=== PATIENT | male | born 1960 | race Caucasian/White ===

== ENCOUNTER 2020-03-27 14:12 | Inpatient (IN) ==
[2020-03-27] MEDS ORDERED: fentaNYL citrate 100 MCG/2 ML CARP IV ONE (14:45)
[2020-03-27] MEDS ORDERED: ETOMIDATE 2 MG/ML 20 ML VIAL IV ONE ×2 (14:45→20:53)
[2020-03-27] MEDS ORDERED: MIDAZOLAM HCL 5 MG/ML VIAL IV ONE (14:45)
[2020-03-27] MEDS ORDERED: SUCCINYLCHOLINE CHLORIDE 20 MG/ML 10 ML VIAL IV ONE (14:45)
[2020-03-27] MEDS ORDERED: ALBUT/IPRATROP 3MG/0.5MG NEB 3 ML VIAL NEB ONE (14:54)
--- NOTE | 2020-03-27 14:58 | Emergency Department Note ---
Impression & Plan Pneumonia, Hypoxia, Respiratory failure ED Provider Note NAME: GARRY HANSEN JR AGE: 59 SEX: M : 1960 ARRIVES VIA: Ambulance INFORMANT: Patient, ED PROVIDER(S): Byron Bernal DO CHIEF COMPLAINT: Shortness of breath HPI: The patient is a 59-year-old male who presented to the emergency department for severe shortness of breath. The patient presented via ambulance. He was noted to have hypoxia prior to arrival with an oxygen saturation in the 80s. The patient was placed on nonrebreather mask. Recently he was seen at [facility] but left because he did not want to stay there. He then went to [facility]. At that time he was worked up and diagnosed with a pulmonary infection. He was started on steroids as well as Levaquin. He states he has been compliant with these medications. He has had 2 COVID-19 test both of which were negative the most recent one was this past Saturday. He does complain of fever and cough. He does complain of nausea but no vomiting. He complains of difficulty breathing which is worse with any exertion. He denies having any specific chest pain. He denies having any lower extremity swelling or pain. He had no weight loss or weight gain. He has had similar symptoms in the past because of a previous trauma to his chest and he feels that he is a set up for pulmonary infection because of this. He states that he is been compliant with the antibiotic. ROS: See above HPI for pertinent positives & negatives. A total of 10 systems reviewed and were otherwise negative. PAST MEDICAL HISTORY: See Below PAST SURGICAL HISTORY: See Below FAMILY HISTORY: See Below SOCIAL HISTORY: See Below HOME MEDICATIONS: See Below ALLERGIES: See Below VITALS: See Below PHYSICAL EXAMINATION: GENERAL: The patient is awake but somewhat listless. He does answer questions appropriately. EYES: The conjunctivae are clear. The pupils are round and reactive. EARS, NOSE, MOUTH AND THROAT: The nose is without any evidence of any deformity. NECK: The neck is nontender and supple. RESPIRATORY: Diminished breath sounds are noted throughout. Rales were noted throughout. There is significant tachypnea as well as conversational dyspnea. CARDIOVASCULAR: Regular rate and rhythm noted there no murmurs rubs or gallops normal S1 normal S2. GASTROINTESTINAL: The abdomen is soft. Abdomen is nontender. MUSCULOSKELETAL/EXTREMITIES: There is no evidence of gross deformity full range of motion is noted in the hips and shoulders. SKIN: Skin is warm and dry. There is no significant pedal edema. NEUROLOGIC: Patient is oriented x3. Strength was symmetric. MEDICAL DECISION MAKING: The patient is a 59-year-old male who presented to the emergency department for an evaluation of difficulty breathing. The patient was recently discharged from inpatient stay for breathing difficulties. He was diagnosed with bronchitis. He was started on an antibiotic and steroid. The patient started to get worse. He was only discharged a few days ago. He presented via ambulance. He had a significant oxygen demand with severe hypoxia. The patient was tested for COVID-19 which was negative previously. A repeat test today was also negative. The patient's history and physical exam as well as his radiographic findings appear to be very consistent with COVID-19 but at this time he was covered with antibiotics for presumed pneumonia. I discussed the patient's laboratory and radiographic studies with him. He was treated with bronchodilators IV steroids IV antibiotics and was reevaluated multiple times. On subsequent reevaluation his oxygen saturation had improved significantly. Given his findings I discu ssed his case with the on-call [facility] hospitalist. They have agreed to evaluate the patient in the emergency department for further management and disposition. Triage Nursing notes reviewed. Prior medical records reviewed Vital Signs: reviewed and remarkable for hypoxia and hypertension. There is also tachypnea present. Differential diagnosis: Reactive airway disease, pneumonia, pneumothorax, COPD, CHF, infections, cardiac ischemia, pulmonary embolism, musculoskeletal, gastrointestinal, as well as other pathologies. ER treatment provided: See below Diagnostics interpreted by me: ECG: EKG was obtained in the emergency department. My interpretation is sinus rhythm at 71 bpm. PACs were noted. There was no acute ST segment abnormalities noted. This was compared to a tracing from December 022012. No significant changes were noted. Cardiac Monitoring: An order was placed for continuous cardiac monitoring. The monitor shows a rate of 75 bpm with sinus rhythm. Laboratory studies: As stated above and show below. Imaging studies: See below Consultation(s): [id number]: I discussed this case with Dr. Rachel. ED COURSE: Procedures: Endotracheal Intubation Indication respiratory failure, hypoxia. The patient was on 100% oxygen via NRB prior to the procedure. Suction, airway equipment, RSI drugs, respiratory equipment, and appropriate personnel were prepared prior to the initiation of the procedure. A time out was taken. Induction was performed with etomidate and succinylcholine. After observing the clinical benefit of the medications, the airway was easily visualized utilizing a glide scope. A 8.0 size ETT tube was placed atraumatically to 26 cm using standard technique. The cuff inflated without signs of malfunction. There were bilateral breath sounds, positive colormetric change, no gastric sounds, a good capnography waveform, and post procedure pulse oximetry was 96%. Post intubation sedation and paralysis was administered using propofol. There were no complications. PDMP:reviewed and no issues Critical Care: I have personally spent greater than 45 minutes of critical care time in the direct management of this patient. This includes bedside care, interpretation of diagnostic studies, and testing, discussion with consultants, patient, and f amily members, and other required patient management activities. This 45 minutes is in excess of all separately billable procedures. Past Med/Surg History Medical History Chest x-ray abnormality Cough with sputum Exertional dyspnea No significant past medical history Obesity Obesity (BMI 30.0-34.9) Pulmonary scarring Sinusitis Snoring Family History Family/Other Cancer Diabetes Other No significant family history Social History Smoking Status: Never smoker Feels Safe at Home: Yes Allergies Allergies Allergy/AdvReac Type Severity Reaction Status Date / Time No Known Allergies Allergy Verified 03/27/20 16:42 Home Meds Home Medications Medication Instructions Recorded Confirmed amitriptyline 75 mg PO HS 01/13/19 03/27/20 propranolol 10 mg PO AMHS 01/13/19 03/27/20 albuterol sulfate 90 mcg/actuation 2 puffs INH Q6H PRN 11/09/19 03/27/20 aerosol inhaler omeprazole 20 mg capsule,delayed 20 mg PO DAILY 11/09/19 03/27/20 release levofloxacin 750 mg PO Q24H 03/27/20 03/27/20 phenazopyridine 100 mg PO Q8H PRN 03/27/20 03/27/20 prednisone See Rx Instructions .ROUTE .COMPLEX 03/27/20 03/27/20 tamsulosin 0.4 mg PO DAILY 03/27/20 03/27/20 Results & Data (ED) Vital Signs Vital Signs - 24 hr 03/27/20 14:25 03/27/20 14:45 03/27/20 14:58 Temperature 37.0 C Temperature Source Oral Pulse Rate 72 71 Pulse Rate [Apical] Pulse Rate from SpO2 Sensor 72 Respiratory Rate 24 27 H Respiratory Effort / Characteristics Spontaneous Blood Pressure 142/77 H Blood Pressure Mean 98 Pulse Oximetry 83 L 96 Oxygen Delivery Method Room Air Non-rebreather Non-rebreather Non-rebreather Oxygen Flow Rate 0 10 10 Fraction of Inspired Oxygen Sepsis New/Unexplained Change in Mental Status No Sepsis Action Taken by Nursing Physician Notified End-Tidal CO2 Oxygen Flow Rate - Titration 10 Fraction of Inspired Oxygen - Titration Pulse Oximetry Post Tiitration 97 03/27/20 15:00 03/27/20 15:15 03/27/20 15:26 Temperature Temperature Source Pulse Rate 71 71 Pulse Rate [Apical] 72 Pulse Rate from SpO2 Sensor 71 71 Respiratory Rate 22 30 H 22 Respiratory Effort / Characteristics Spontaneous Blood Pressure 139/85 Blood Pressure Mean 98 Pulse Oximetry 95 94 95 Oxygen Delivery Method Non-rebreather Non-rebreather Non-rebreather Oxygen Flow Rate 10 10 10 Fraction of Inspired Oxygen Sepsis New/Unexplained Change in Mental Status Sepsis Action Taken by Nursing End-Tidal CO2 Oxygen Flow Rate - Titration Fraction of Inspired Oxygen - Titration Pulse Oximetry Post Tiitration 03/27/20 15:30 03/27/20 15:45 03/27/20 16:00 Temperature Temperature Source Pulse Rate 74 77 79 Pulse Rate [Apical] Pulse Rate from SpO2 Sensor 74 77 79 Respiratory Rate 27 H 25 H 28 H Respiratory Effort / Characteristics Blood Pressure 139/82 137/77 Blood Pressure Mean 96 101 Pulse Oximetry 94 92 93 Oxygen Delivery Method Oxygen Flow Rate Fraction of Inspired Oxygen Sepsis New/Unexplained Change in Mental Status Sepsis Action Taken by Nursing End-Tidal CO2 Oxygen Flow Rate - Titration Fraction of Inspired Oxygen - Titration Pulse Oximetry Post Tiitration 03/27/20 16:15 03/27/20 16:30 03/27/20 16:45 Temperature Temperature Source Pulse Rate 76 87 81 Pulse Rate [Apical] Pulse Rate from SpO2 Sensor 76 82 82 Respiratory Rate 28 H 25 H 28 H Respiratory Effort / Characteristics Blood Pressure 118/76 Blood Pressure Mean 86 Pulse Oximetry 94 92 93 Oxygen Delivery Method Oxygen Flow Rate Fraction of Inspired Oxygen Sepsis New/Unexplained Change in Mental Status Sepsis Action Taken by Nursing End-Tidal CO2 Oxygen Flow Rate - Titration Fraction of Inspired Oxygen - Titration Pulse Oximetry Post Tiitration 03/27/20 17:00 03/27/20 17:01 03/27/20 17:15 Temperature Temperature Source Pulse Rate 83 79 79 Pulse Rate [Apical] Pulse Rate from SpO2 Sensor 83 79 79 Respiratory Rate 29 H 32 H 28 H Respiratory Effort / Characteristics Blood Pressure 146/86 H Blood Pressure Mean 99 Pulse Oximetry 93 95 94 Oxygen Delivery Method Oxygen Flow Rate Fraction of Inspired Oxygen Sepsis New/Unexplained Change in Mental Status Sepsis Action Taken by Nursing End-Tidal CO2 Oxygen Flow Rate - Titration Fraction of Inspired Oxygen - Titration Pulse Oximetry Post Tiitration 03/27/20 17:30 03/27/20 17:47 03/27/20 17:53 Temperature Temperature Source Pulse Rate 89 82 Pulse Rate [Apical] Pulse Rate from SpO2 Sensor 89 83 Respiratory Rate 32 H 38 H Respiratory Effort / Characteristics Blood Pressure 158/97 H Blood Pressure Mean 113 Pulse Oximetry 93 78 L 91 Oxygen Delivery Method Room Air Oxymask Oxygen Flow Rate 6 Fraction of Inspired Oxygen Sepsis New/Unexplained Change in Mental Status Sepsis Action Taken by Nursing End-Tidal CO2 Oxygen Flow Rate - Titration Fraction of Inspired Oxygen - Titration 8 Pulse Oximetry Post Tiitration 03/27/20 18:00 03/27/20 18:15 03/27/20 18:45 Temperature Temperature Source Pulse Rate 76 74 82 Pulse Rate [Apical] Pulse Rate from SpO2 Sensor 76 74 82 Respiratory Rate 28 H 29 H 27 H Respiratory Effort / Characteristics Blood Pressure 144/82 H Blood Pressure Mean 93 Pulse Oximetry 90 92 97 Oxygen Delivery Method Oxymask Oxymask Oxymask Oxygen Flow Rate 8 10 8 Fraction of Inspired Oxygen Sepsis New/Unexplained Change in Mental Status Sepsis Action Taken by Nursing End-Tidal CO2 Oxygen Flow Rate - Titration Fraction of Inspired Oxygen - Titration Pulse Oximetry Post Tiitration 03/27/20 19:00 03/27/20 19:15 03/27/20 19:30 Temperature Temperature Source Pulse Rate 76 75 75 Pulse Rate [Apical] Pulse Rate from SpO2 Sensor 77 76 75 Respiratory Rate 28 H 27 H 15 Respiratory Effort / Characteristics Blood Pressure 154/86 H 146/85 H Blood Pressure Mean 107 96 Pulse Oximetry 95 94 94 Oxygen Delivery Method Oxymask Oxymask Oxymask Oxygen Flow Rate 8 8 8 Fraction of Inspired Oxygen Sepsis New/Unexplained Change in Mental Status Sepsis Action Taken by Nursing End-Tidal CO2 Oxygen Flow Rate - Titration Fraction of Inspired Oxygen - Titration Pulse Oximetry Post Tiitration 03/27/20 19:45 03/27/20 20:00 03/27/20 20:15 Temperature Temperature Source Pulse Rate 75 76 76 Pulse Rate [Apical] Pulse Rate from SpO2 Sensor 75 77 76 Respiratory Rate 26 H 18 31 H Respiratory Effort / Characteristics Blood Pressure 152/90 H Blood Pressure Mean 105 Pulse Oximetry 96 96 96 Oxygen Delivery Method Oxymask Oxymask Oxymask Oxygen Flow Rate 8 8 8 Fraction of Inspired Oxygen Sepsis New/Unexplained Change in Mental Status Sepsis Action Taken by Nursing End-Tidal CO2 Oxygen Flow Rate - Titration Fraction of Inspired Oxygen - Titration Pulse Oximetry Post Tiitration 03/27/20 20:30 03/27/20 20:45 03/27/20 21:00 Temperature Temperature Source Pulse Rate 76 76 77 Pulse Rate [Apical] Pulse Rate from SpO2 Sensor 76 76 78 Respiratory Rate 32 H 5 L 30 H Respiratory Effort / Characteristics Blood Pressure 156/90 H 156/90 H Blood Pressure Mean 113 104 Pulse Oximetry 98 100 97 Oxygen Delivery Method Oxymask Oxymask Oxymask Oxygen Flow Rate 8 8 8 Fraction of Inspired Oxygen Sepsis New/Unexplained Change in Mental Status Sepsis Action Taken by Nursing End-Tidal CO2 Oxygen Flow Rate - Titration Fraction of Inspired Oxygen - Titration Pulse Oximetry Post Tiitration 03/27/20 21:29 Temperature Temperature Source Pulse Rate 76 Pulse Rate [Apical] Pulse Rate from SpO2 Sensor Respiratory Rate 24 Respiratory Effort / Characteristics Blood Pressure Blood Pressure Mean Pulse Oximetry 95 Oxygen Delivery Method Oxygen Flow Rate Fraction of Inspired Oxygen 70 Sepsis New/Unexplained Change in Mental Status Sepsis Action Taken by Nursing End-Tidal CO2 42 Oxygen Flow Rate - Titration Fraction of Inspired Oxygen - Titration Pulse Oximetry Post Tiitration Home Medications Current Medication List: was personally reviewed by me Laboratory Data Attestation: I reviewed the patient's lab results. Result diagrams: 03/27/20 15:12 03/27/20 15:12 Lab Results 03/27/20 03/27/20 03/27/20 Range/Units 15:12 15:12 15:12 WBC 15.69 H (4.8-10.8) K/uL RBC 4.66 L (4.7-6.1) M/uL Hgb 14.6 (14.0-18.0) g/dL Hct 43.3 (42-52) % MCV 92.9 (80-100) fL MCH 31.3 (25-34) pg MCHC 33.7 (32-36) g/dL RDW Std Deviation 44.9 (36.4-46.3) fL RDW Coeff of Reynaldo 13.3 (11.5-14.5) % Plt Count 256 (130-400) K/uL MPV 10.6 H (7.4-10.4) fL Immature Gran % (Auto) 1.1 % Neut % (Auto) 90.8 % Lymph % (Auto) 4.7 % [place] % (Auto) 3.3 % Eos % (Auto) 0.0 % Baso % (Auto) 0.1 % Neut # (Auto) 14.25 H (1.4-6.5) K/uL Lymph # (Auto) 0.73 L (1.2-3.4) K/uL [place] # (Auto) 0.52 (0.11-0.59) K/uL Eos # (Auto) 0.00 (0-0.5) K/uL Baso # (Auto) 0.01 (0-0.2) K/uL Immature Gran # (Auto) 0.18 H (0.00-0.02) K/uL PT 12.6 H (9.0-12.0) Seconds INR 1.2 H (0.9-1.1) APTT 29.5 (21.0-31.0) Seconds PTT Ratio 1.1 D-Dimer 2030 H* (0-500) ug/L FEU VBG pH (7.36-7.41) VBG pCO2 (38-50) mmHg VBG pO2 mmHg VBG HCO3 mmol/L VBG O2 Saturation % VBG Base Excess mEq/L Barometric Pressure mm/Hg Sodium 140 (136-145) mmol/L Potassium 3.4 L (3.5-5.1) mmol/L Chloride 109 H (98-107) mmol/L Carbon Dioxide 27 (21-32) mmol/L Anion Gap 4.0 (3-11) BUN 23 H (7-18) mg/dl Creatinine 1.13 (0.6-1.4) mg/dl Est Cr Clr Drug Dosing 106.1 ml/min Est GFR ( Amer) 82.0 Est GFR (Non-Af Amer) 70.8 BUN/Creatinine Ratio 20.7 H (10-20) Glucose 133 H (70-99) mg/dl Lactate (0.4-2.0) mmol/L Calcium 7.7 L (8.5-10.1) mg/dl Magnesium 1.6 L (1.8-2.4) mg/dl Total Bilirubin 1.2 H (0.2-1) mg/dl AST 28 (15-37) U/L ALT 42 (12-78) U/L Alkaline Phosphatase 81 (45-117) U/L Troponin I < 0.015 (0-0.045) ng/ml NT-Pro-B Natriuret Pep 842 (0-900) pg/ml Total Protein 6.6 (6.4-8.2) gm/dl Albumin 2.8 L (3.4-5.0) gm/dl Globulin 3.8 (2.5-4.0) gm/dl Albumin/Globulin Ratio 0.7 L (0.9-2) Procalcitonin (0-0.5) ng/ml Urine Color Urine Appearance (Clear) Urine pH (4.5-7.5) Ur Specific Stanley (1.000-1.030) Urine Protein (Negative) Urine Glucose (UA) (Negative) Urine Ketones (Negative) Urine Blood (Negative) Urine Nitrite (Negative) Urine Bilirubin (Negative) Urine Urobilinogen (Negative) Ur Leukocyte Esterase (Negative) Urine WBC (Auto) (0-5) /hpf Urine RBC (Auto) (0-4) /hpf U Hyaline Cast (Auto) (0-5) /lpf U Epithel Cells (Auto) (0-5) /lpf Urine Bacteria (Auto) (Negative) COVID-19 Eval Order Influ A Molecular Assay (Negative) Influ B Molecular Assay (Negative) SARS-CoV-2, RNA, NAAT (NEGATIVE) 03/27/20 03/27/20 03/27/20 Range/Units 15:12 15:12 16:06 WBC (4.8-10.8) K/uL RBC (4.7-6.1) M/uL Hgb (14.0-18.0) g/dL Hct (42-52) % MCV (80-100) fL MCH (25-34) pg MCHC (32-36) g/dL RDW Std Deviation (36.4-46.3) fL RDW Coeff of Reynaldo (11.5-14.5) % Plt Count (130-400) K/uL MPV (7.4-10.4) fL Immature Gran % (Auto) % Neut % (Auto) % Lymph % (Auto) % [place] % (Auto) % Eos % (Auto) % Baso % (Auto) % Neut # (Auto) (1.4-6.5) K/uL Lymph # (Auto) (1.2-3.4) K/uL [place] # (Auto) (0.11-0.59) K/uL Eos # (Auto) (0-0.5) K/uL Baso # (Auto) (0-0.2) K/uL Immature Gran # (Auto) (0.00-0.02) K/uL PT (9.0-12.0) Seconds INR (0.9-1.1) APTT (21.0-31.0) Seconds PTT Ratio D-Dimer (0-500) ug/L FEU VBG pH 7.42 H (7.36-7.41) VBG pCO2 44 (38-50) mmHg VBG pO2 29 mmHg VBG HCO3 28 mmol/L VBG O2 Saturation < 60.0 % VBG Base Excess 2.9 mEq/L Barometric Pressure 725.2 mm/Hg Sodium (136-145) mmol/L Potassium (3.5-5.1) mmol/L Chloride (98-107) mmol/L Carbon Dioxide (21-32) mmol/L Anion Gap (3-11) BUN (7-18) mg/dl Creatinine (0.6-1.4) mg/dl Est Cr Clr Drug Dosing ml/min Est GFR ( Amer) Est GFR (Non-Af Amer) BUN/Creatinine Ratio (10-20) Glucose (70-99) mg/dl Lactate 1.4 (0.4-2.0) mmol/L Calcium (8.5-10.1) mg/dl Magnesium (1.8-2.4) mg/dl Total Bilirubin (0.2-1) mg/dl AST (15-37) U/L ALT (12-78) U/L Alkaline Phosphatase (45-117) U/L Troponin I (0-0.045) ng/ml NT-Pro-B Natriuret Pep (0-900) pg/ml Total Protein (6.4-8.2) gm/dl Albumin (3.4-5.0) gm/dl Globulin (2.5-4.0) gm/dl Albumin/Globulin Ratio (0.9-2) Procalcitonin 0.06 (0-0.5) ng/ml Urine Color Urine Appearance (Clear) Urine pH (4.5-7.5) Ur Specific [place] (1.000-1.030) Urine Protein (Negative) Urine Glucose (UA) (Negative) Urine Ketones (Negative) Urine Blood (Negative) Urine Nitrite (Negative) Urine Bilirubin (Negative) Urine Urobilinogen (Negative) Ur Leukocyte Esterase (Negative) Urine WBC (Auto) (0-5) /hpf Urine RBC (Auto) (0-4) /hpf U Hyaline Cast (Auto) (0-5) /lpf U Epithel Cells (Auto) (0-5) /lpf Urine Bacteria (Auto) (Negative) COVID-19 Eval Order Influ A Molecular Assay (Negative) Influ B Molecular Assay (Negative) SARS-CoV-2, RNA, NAAT (NEGATIVE) 03/27/20 03/27/20 03/27/20 Range/Units 17:55 17:55 19:59 WBC (4.8-10.8) K/uL RBC (4.7-6.1) M/uL Hgb (14.0-18.0) g/dL Hct (42-52) % MCV (80-100) fL MCH (25-34) pg MCHC (32-36) g/dL RDW Std Deviation (36.4-46.3) fL RDW Coeff of Reynaldo (11.5-14.5) % Plt Count (130-400) K/uL MPV (7.4-10.4) fL Immature Gran % (Auto) % Neut % (Auto) % Lymph % (Auto) % [place] % (Auto) % Eos % (Auto) % Baso % (Auto) % Neut # (Auto) (1.4-6.5) K/uL Lymph # (Auto) (1.2-3.4) K/uL [place] # (Auto) (0.11-0.59) K/uL Eos # (Auto) (0-0.5) K/uL Baso # (Auto) (0-0.2) K/uL Immature Gran # (Auto) (0.00-0.02) K/uL PT (9.0-12.0) Seconds INR (0.9-1.1) APTT (21.0-31.0) Seconds PTT Ratio D-Dimer (0-500) ug/L FEU VBG pH (7.36-7.41) VBG pCO2 (38-50) mmHg VBG pO2 mmHg VBG HCO3 mmol/L VBG O2 Saturation % VBG Base Excess mEq/L Barometric Pressure mm/Hg Sodium (136-145) mmol/L Potassium (3.5-5.1) mmol/L Chloride (98-107) mmol/L Carbon Dioxide (21-32) mmol/L Anion Gap (3-11) BUN (7-18) mg/dl Creatinine (0.6-1.4) mg/dl Est Cr Clr Drug Dosing ml/min Est GFR ( Amer) Est GFR (Non-Af Amer) BUN/Creatinine Ratio (10-20) Glucose (70-99) mg/dl Lactate (0.4-2.0) mmol/L Calcium (8.5-10.1) mg/dl Magnesium (1.8-2.4) mg/dl Total Bilirubin (0.2-1) mg/dl AST (15-37) U/L ALT (12-78) U/L Alkaline Phosphatase (45-117) U/L Troponin I (0-0.045) ng/ml NT-Pro-B Natriuret Pep (0-900) pg/ml Total Protein (6.4-8.2) gm/dl Albumin (3.4-5.0) gm/dl Globulin (2.5-4.0) gm/dl Albumin/Globulin Ratio (0.9-2) Procalcitonin (0-0.5) ng/ml Urine Color Dark Yellow Urine Appearance Clear (Clear) Urine pH 6.5 (4.5-7.5) Ur Specific [place] > 1.045 H (1.000-1.030) Urine Protein 1+ H (Negative) Urine Glucose (UA) Negative (Negative) Urine Ketones Negative (Negative) Urine Blood 3+ H (Negative) Urine Nitrite Negative (Negative) Urine Bilirubin Negative (Negative) Urine Urobilinogen Negative (Negative) Ur Leukocyte Esterase Negative (Negative) Urine WBC (Auto) 1-5 (0-5) /hpf Urine RBC (Auto) >30 H (0-4) /hpf U Hyaline Cast (Auto) 0 (0-5) /lpf U Epithel Cells (Auto) 20-30 H (0-5) /lpf Urine Bacteria (Auto) Negative (Negative) COVID-19 Eval [facility] Influ A Molecular Assay Negative (Negative) Influ B Molecular Assay Negative (Negative) SARS-CoV-2, RNA, NAAT NEGATIVE (NEGATIVE) Administered Medications Discontinued Medications Albuterol (Albut/Ipratrop 3mg/0.5mg Neb 3 Ml Vial) 12 ml NEB ONE ONE Stop: 03/27/20 14:55 Last Admin: 03/27/20 15:20 Dose: 12 ml Documented by: [id number] Dexamethasone (Dexamethasone Sod Inj 10 Mg/Ml Vial) 10 mg IV NOW ONE Stop: 03/27/20 18:47 Last Admin: 03/27/20 19:24 Dose: 10 mg Documented by: [id number] Piperacillin Sod/Tazobactam Sod (Zosyn) 4.5 gm in 120 mls @ 240 mls/hr IV NOW ONE Stop: 03/27/20 16:26 Last Infusion: 03/27/20 18:20 Dose: 0 mls/hr Documented by: [id number] Admin: 03/27/20 17:50 Dose: 240 mls/hr Documented by: [id number] Vancomycin HCl 2,500 mg/ (Sodium Chloride) 550 mls @ 200 mls/hr IV NOW ONE Stop: 03/27/20 18:41 Last Infusion: 03/27/20 20:35 Dose: 0 mls/hr Documented by: [id number] Admin: 03/27/20 17:50 Dose: 200 mls/hr Documented by: [id number] Ioversol (Optiray 320 125ml) 119 ml IV ONCE ONE Stop: 03/27/20 18:26 Last Admin: 03/27/20 18:25 Dose: 119 ml Documented by: [id number] Imaging Data Attestation: I personally reviewed and interpreted this imaging study as follows: My Impression: 1 view chest x-ray was obtained in the emergency department after intubation. My interpretation is endotracheal tube is noted above the samuel. Good aeration is noted bilaterally however bilateral parenchymal infiltrates are noted. Radiologist's Impression: Patient: GARRY HANSEN JR Admit Date: 03/27/20 MR#: [id number] Address1: [address] [place] [address] Acct ID:[id number] Address2: Date: 1960 [facility] Zip: [place] [address] Age: 59 Location: ED Sex: M Room/Bed: Att Phy: Diagnosis: RESPIRATORY PROBLEMS Sweetie Phy: Trevor Rashid DO Service Date: 03/27/20 Fam Phy: Interpreting Phy: Adama Loera Admit Phy: Ordering Phy: Byron Bernal DO cc: ~ CT soft tissue neck w con HISTORY: 59 years-old Male diff breathing acute shortness of breath COMPARISON: CTA of the chest of same day TECHNIQUE: Multiple axial CT images of the soft tissues of the neck were obtained following the intravenous administration of 119 mL Optiray 320. A dose lowering technique was used consistent with the principals of ALARA. FINDINGS: The imaged intracranial structures demonstrate no acute abnormality. Rotoformer Backtender localizer images demonstrate extensive bilateral pulmonary opacities. Orbits and soft tissues are unremarkable. Streak artifact from dental amalgam hardware. The parotid, submandibular and thyroid glands appear unremarkable. The nasopharynx, oral pharynx and hypopharynx are patent. The epiglottis, aryepiglottic folds, glottis and subglottic airway appears unremarkable. Patent airway. Mildly prominent lymph nodes of the upper mediastinum. 11 mm fluid attenuating focus is noted lateral to the uvula involving the oral pharyngeal mucosa on image 164 series 6. No prevertebral edema. ORIF hardware of the left clavicle. Groundglass and consolidative opacities of the imaged lung apices. No pneumothorax. Remote displaced left-sided rib fractures. No acute fracture identified. IMPRESSION: 1. Patent airway with no infectious or inflammatory changes of the neck identified. 2. Groundglass and consolidative opacities of the lung apices. Please refer to CTA chest of same day for additional findings. 3. Mildly prominent upper mediastinal lymph nodes are likely reactive. 4. 11 mm fluid attenuating focus lateral to the uvula involving the oral pharyngeal mucosa favors benign etiology. ACT 112: Negative or not required by law. The above report was generated using voice recognition software. It may contain grammatical, syntax or spelling errors. Electronically signed by: Dick Loera M.D. 03/27/2020 6:55 PM Dictated: 03/27/201848 Transcribed: 03/27/201848 Patient: GARRY HANSEN JR Admit Date: 03/27/20 MR#: [id number] Address1: [address] [place] [address] Acct ID:[id number] Address2: Date: 1960 [facility] Zip: [place] [address] Age: 59 Location: ED Sex: M Room/Bed: Att Phy: Diagnosis: RESPIRATORY PROBLEMS Sweetie Phy: Trevor Rashid DO Service Date: 03/27/20 Fam Phy: Interpreting Phy: Adama Loera Admit Phy: Ordering Phy: Byron Bernal DO cc: ~ CT angio chest PE protocol CT DOSE: 1600.34 mGy.cm HISTORY: 59 years-old Male with PE. Acute shortness of breath TECHNIQUE: Multiple CTA images of the chest were obtained after the intravenous administration of 119 ml Optiray 320. Coronal and sagittal MIPS were obtained from the axial data set and were submitted for review. All measurements were obtained according to NASCET criteria. A dose lowering technique was utilized adhering to the principles of ALARA. COMPARISON: CT soft tissue neck of same day, CT abdomen and pelvis 01/13/2019 FINDINGS: Limited exam secondary to upper extremity positioning CTA: Heart is upper limits of normal in size. No pericardial effusion. There is no t horacic aortic aneurysm or dissection. Patency of the imaged great vessels. The pulmonary arterial tree is opacified to level the proximal segmental branches and demonstrates no filling defects to suggest thromboembolic disease. CT CHEST: Unremarkable thyroid. Prominent mediastinal and hilar lymph nodes measure up to 8 mm, likely reactive. There are trace pleural effusions. Moderate to extensive irregular groundglass and consolidative opacities are noted within all lobes bilaterally. There is no pneumothorax. No suspicious pulmonary nodules. Central airways appear patent. No acute process of the imaged upper abdomen. Suggested hepatic steatosis. Soft tissues are unremarkable. The bones appear grossly intact. Degenerative changes of the shoulders and spine. Remote left-sided rib fractures. IMPRESSION: 1. No evidence of pulmonary thromboembolic disease. 2. Bilateral mixed groundglass and consolidative opacities within all lobes bilaterally suggest multifocal pneumonia. Follow-up imaging to document resolution recommended. 3. Mildly prominent mediastinal and hilar lymph nodes, likely reactive. 4. Trace pleural effusions. ACT 112: Negative or not required by law. The above report was generated using voice recognition software. It may contain grammatical, syntax or spelling errors. Electronically signed by: Dick Loera M.D. 03/27/2020 6:46 PM Dictated: 03/27/201838 Transcribed: 03/27/201838 Patient: GARRY HANSEN JR Admit Date: 03/27/20 MR#: [id number] Address1: [address] [place] [address] Acct ID:[id number] Address2: Date: 1960 [facility] Zip: [place] [address] Age: 59 Location: ED Sex: M Room/Bed: Att Phy: Diagnosis: RESPIRATORY PROBLEMS Sweetie Phy: Trevor Rashid DO Service Date: 03/27/20 [facility] Phy: Interpreting Phy: Adama Loera Admit Phy: Ordering Phy: Byron Bernal DO cc: ~ XR chest 1V portable HISTORY: 59 years-old Male SEPSIS . Sepsis COMPARISON: Chest radiograph 12/02/2012 TECHNIQUE: Portable AP view of the chest FINDINGS: Cardiac silhouette is enlarged. Mild bilateral hilar prominence. Mild right hemidiaphragmatic elevation. Bilateral mixed interstitial and alveolar opacities are noted within all lung zones. No pneumothorax, large pleural effusion or overt pulmonary edema. Degenerative changes of the shoulders and spine. Remote left-sided rib fractures. ORIF changes of the left clavicle. IMPRESSION: 1. Bilateral mixed interstitial and alveolar opacities are suggestive of multifocal pneumonia. Follow-up recommended to document resolution 2. Mild bilateral hilar prominence may reflect adenopathy. ACT 112: Negative or not required by law. The above report was generated using voice recognition software. It may contain grammatical, syntax or spelling errors. Electronically signed by: Dick Loera M.D. 03/27/2020 3:15 PM Dictated: 03/27/201513 Transcribed: 03/27/201513 Blood Pressure Blood Pressure Findings: Normal blood pressure Discharge Plan Visit Data Chief Complaint: Respiratory Problems ED Provider: Byron Bernal Discharge Problem: Pneumonia, Hypoxia, Respiratory failure Patient Disposition: Admitted As Inpatient Condition: Good Forms Stand Alone Forms: [facility] Prescriptions Prescriptions: No Action omeprazole 20 mg capsule,delayed release(DR/EC) 20 mg PO DAILY RF: 0 albuterol sulfate 90 mcg/actuation HFA aerosol inhaler 2 puffs INH Q6H PRN (Reason: Wheezing) RF: 0 amitriptyline 75 mg tablet 75 mg PO HS RF: 0 propranolol 10 mg tablet 10 mg PO AMHS RF: 0 tamsulosin 0.4 mg capsule 0.4 mg PO DAILY RF: 0 phenazopyridine 100 mg tablet 100 mg PO Q8H PRN (Reason: Dysuria) RF: 0 levofloxacin 750 mg tablet 750 mg PO Q24H RF: 0 prednisone 10 mg tablet See Rx Instructions .ROUTE .COMPLEX RF: 0 Referrals Referrals: Trevor Rashid DO [Primary Care Provider] - Discharge Problem: Pneumonia Qualifiers: Pneumonia type: due to unspecified organism Laterality: bilateral Lung location: unspecified part of lung Qualified Code(s): J18.9 - Pneumonia, unspecified organism Respiratory failure Qualifiers: Chronicity: acute Respiratory failure complication: hypoxia Qualified Code(s): J96.01 - Acute respiratory failure with hypoxia
--- NOTE | 2020-03-27 15:17 | XRay Report ---
XR chest 1V portable HISTORY: 59 years-old Male SEPSIS . Sepsis COMPARISON: Chest radiograph 12/02/2012 TECHNIQUE: Portable AP view of the chest FINDINGS: Cardiac silhouette is enlarged. Mild bilateral hilar prominence. Mild right hemidiaphragmatic elevati on. Bilateral mixed interstitial and alveolar opacities are noted within all lung zones. No pneumotho rax, large pleural effusion or overt pulmonary edema. Degenerative changes of the shoulders and spine . Remote left-sided rib fractures. ORIF changes of the left clavicle. IMPRESSION: 1. Bilateral mixed interstitial and alveolar opacities are suggestive of multifocal pneumonia. Follow -up recommended to document resolution 2. Mild bilateral hilar prominence may reflect adenopathy. ACT 112: Negative or not required by law. The above report was generated using voice recognition software. It may contain grammatical, syntax o r spelling errors. Electronically signed by: Dick Loera M.D. 03/27/2020 3:15 PM
[2020-03-27 15:28] LABS: Basophils # (auto) 0.01 K/uL (0-0.2); Basophils % (auto) 0.1 %; Hematocrit (blood only) 43.3 % (42-52); Hemoglobin 14.6 g/dL (14.0-18.0); Immature Granulocytes # (auto) 0.18 K/uL (0.00-0.02); Immature Granulocytes % (auto) 1.1 %; Lymphocytes # (auto) 0.73 K/uL (1.2-3.4); Lymphocytes % (auto) 4.7 %; Mean Corpuscular Hemoglobin 31.3 pg (25-34); Mean Corpuscular Hgb Conc 33.7 g/dL (32-36); Mean Corpuscular Volume 92.9 fL (80-100); Mean Platelet Volume 10.6 fL (7.4-10.4); Monocytes # (auto) 0.52 K/uL (0.11-0.59); Monocytes % (auto) 3.3 %; Neutrophils # (auto) 14.25 K/uL (1.4-6.5); Neutrophils % (auto) 90.8 %; Platelet Count 256 K/uL (130-400); RDW Coefficient of Variation 13.3 % (11.5-14.5); RDW Standard Deviation 44.9 fL (36.4-46.3); Red Blood Count 4.66 M/uL (4.7-6.1); White Blood Count 15.69 K/uL (4.8-10.8)
[2020-03-27 15:38] LABS: INR 1.2 (0.9-1.1); Partial Thromboplastin Ratio 1.1; Partial Thromboplastin Time 29.5 Seconds (21.0-31.0); Prothrombin Time 12.6 Seconds (9.0-12.0)
[2020-03-27 15:45] LABS: Alanine Aminotransferase 42 U/L (12-78); Aspartate Aminotransferase 28 U/L (15-37); BUN Creatinine Ratio 20.7 (10-20); Blood Urea Nitrogen 23 mg/dl (7-18); Calcium 7.7 mg/dl (8.5-10.1); Carbon Dioxide 27 mmol/L (21-32); Chloride 109 mmol/L (98-107); Creatinine Clr Calc Pharmacy 106.1 ml/min; Est GFR (Non-African American) 70.8; Glucose 133 mg/dl (70-99); Magnesium 1.6 mg/dl (1.8-2.4); Sodium 140 mmol/L (136-145)
[2020-03-27 15:46] LABS: D Dimer 2030 ug/L FEU (0-500)
[2020-03-27 15:49] LABS: Potassium 3.4 mmol/L (3.5-5.1)
[2020-03-27 15:50] LABS: Albumin Globulin Ratio 0.7 (0.9-2); Albumin Level 2.8 gm/dl (3.4-5.0); Alkaline Phosphatase 81 U/L (45-117); Bilirubin,Total 1.2 mg/dl (0.2-1); Globulin 3.8 gm/dl (2.5-4.0); NT Pro B Type Natriuretic Pept 842 pg/ml (0-900); Total Protein 6.6 gm/dl (6.4-8.2); Troponin I < 0.015 ng/ml (0-0.045)
[2020-03-27] MEDS ORDERED: PIPERACILLIN/TAZOBACTAM 4.5 GM/120 ML BAG IV ONE (15:57)
[2020-03-27] MEDS ORDERED: VANCOMYCIN HCL 2,500 MG in SODIUM CHLORIDE 0.9% 500 ML IV ONE (15:57)
[2020-03-27] MEDS ORDERED: PIPERACILL/TAZOBAC CONSULT ACTIVE PRN ×2 (15:57→22:08)
[2020-03-27] MEDS ORDERED: VANCOMYCIN CONSULT ACTIVE PRN ×2 (15:57→22:08)
[2020-03-27 16:20] LABS: Base Excess VBG 2.9 mEq/L; HCO3 VBG 28 mmol/L; PCO2 VBG 44 mmHg (38-50); PO2 VBG 29 mmHg; pH VBG 7.42 (7.36-7.41)
[2020-03-27 16:21] LABS: Oxygen Saturation VBG < 60.0 %
[2020-03-27] MEDS ORDERED: OPTIRAY 320 125ml IV ONE (18:25)
[2020-03-27 18:29] LABS: SARS CoV2 RNA(COVID-19) ID NOW NEGATIVE (NEGATIVE)
[2020-03-27] MEDS ORDERED: DEXAMETHASONE SOD INJ 10 MG/ML VIAL IV ONE (18:46)
--- NOTE | 2020-03-27 18:47 | CT Scan Report ---
CT angio chest PE protocol CT DOSE: 1600.34 mGy.cm HISTORY: 59 years-old Male with PE. Acute shortness of breath TECHNIQUE: Multiple CTA images of the chest were obtained after the intravenous administration of 119 ml Optiray 320. Coronal and sagittal MIPS were obtained from the axial data set and were submitted for review. All measurements were obtained according to NASCET criteria. A dose lowering technique w as utilized adhering to the principles of ALARA. COMPARISON: CT soft tissue neck of same day, CT abdomen and pelvis 01/13/2019 FINDINGS: Limited exam secondary to upper extremity positioning CTA: Heart is upper limits of normal in size. No pericardial effusion. There is no thoracic aortic aneurys m or dissection. Patency of the imaged great vessels. The pulmonary arterial tree is opacified to lev el the proximal segmental branches and demonstrates no filling defects to suggest thromboembolic dise ase. CT CHEST: Unremarkable thyroid. Prominent mediastinal and hilar lymph nodes measure up to 8 mm, likely reactive . There are trace pleural effusions. Moderate to extensive irregular groundglass and consolidative op acities are noted within all lobes bilaterally. There is no pneumothorax. No suspicious pulmonary nod ules. Central airways appear patent. No acute process of the imaged upper abdomen. Suggested hepatic steatosis. Soft tissues are unremarka ble. The bones appear grossly intact. Degenerative changes of the shoulders and spine. Remote left-si ded rib fractures. IMPRESSION: 1. No evidence of pulmonary thromboembolic disease. 2. Bilateral mixed groundglass and consolidative opacities within all lobes bilaterally suggest multi focal pneumonia. Follow-up imaging to document resolution recommended. 3. Mildly prominent mediastinal and hilar lymph nodes, likely reactive. 4. Trace pleural effusions. ACT 112: Negative or not required by law. The above report was generated using voice recognition software. It may contain grammatical, syntax o r spelling errors. Electronically signed by: Dick Loera M.D. 03/27/2020 6:46 PM
--- NOTE | 2020-03-27 18:56 | CT Scan Report ---
CT soft tissue neck w con HISTORY: 59 years-old Male diff breathing acute shortness of breath COMPARISON: CTA of the chest of same day TECHNIQUE: Multiple axial CT images of the soft tissues of the neck were obtained following the intra venous administration of 119 mL Optiray 320. A dose lowering technique was used consistent with the p rincipals of RENEE. FINDINGS: The imaged intracranial structures demonstrate no acute abnormality. Spray Machine Operator localizer images demonstra te extensive bilateral pulmonary opacities. Orbits and soft tissues are unremarkable. Streak artifact from dental amalgam hardware. The parotid, submandibular and thyroid glands appear unremarkable. The nasopharynx, oral pharynx and hypopharynx are patent. The epiglottis, aryepiglottic folds, glottis a nd subglottic airway appears unremarkable. Patent airway. Mildly prominent lymph nodes of the upper m ediastinum. 11 mm fluid attenuating focus is noted lateral to the uvula involving the oral pharyngeal mucosa on image 164 series 6. No prevertebral edema. ORIF hardware of the left clavicle. Groundglass and consolidative opacities of the imaged lung apices. No pneumothorax. Remote displaced left-sided rib fractures. No acute fracture identified. IMPRESSION: 1. Patent airway with no infectious or inflammatory changes of the neck identified. 2. Groundglass and consolidative opacities of the lung apices. Please refer to CTA chest of same day for additional findings. 3. Mildly prominent upper mediastinal lymph nodes are likely reactive. 4. 11 mm fluid attenuating focus lateral to the uvula involving the oral pharyngeal mucosa favors cody ign etiology. ACT 112: Negative or not required by law. The above report was generated using voice recognition software. It may contain grammatical, syntax o r spelling errors. Electronically signed by: Dick Loera M.D. 03/27/2020 6:55 PM
[2020-03-27 19:01] LABS: Influenza A virus by PCR Negative (Negative); Influenza B virus by PCR Negative (Negative)
[2020-03-27 20:26] LABS: Appearance Urine Clear (Clear); Bacteria Urine Automated Negative (Negative); Bilirubin Urine Negative (Negative); Blood Urine 3+ (Negative); Cast Urine Automated 0 /lpf (0-5); Color Urine Dark Yellow; Epithelial Cell Urine Auto 20-30 /lpf (0-5); Glucose Urine UA Negative (Negative); Ketones Urine Negative (Negative); Leukocyte Esterase Urine Negative (Negative); Nitrite Urine Negative (Negative); Protein Urine 1+ (Negative); RBC Urine Automated >30 /hpf (0-4); Specific Gravity Urine > 1.045 (1.000-1.030); Urobilinogen Urine Negative (Negative); pH Urine 6.5 (4.5-7.5)
--- NOTE | 2020-03-27 20:32 | Electrocardiogram Report ---
Test Reason : Blood Pressure : / mmHG Vent. Rate : 071 BPM Atrial Rate : 071 BPM P-R Int : 154 ms QRS Dur : 086 ms QT Int : 438 ms P-R-T Axes : 051 036 022 degrees QTc Int : 475 ms Sinus rhythm with occasional Premature ventricular complexes Otherwise normal ECG When compared with ECG of 02-DEC-2012 03:23, Premature ventricular complexes are now Present Confirmed by Darrick Lyle ([id number]) on 03/27/2020 8:31:53 PM Referred By: REFERRED SELF Confirmed By:Darrick Lyle
[2020-03-27] MEDS ORDERED: RAPID SEQUENCE INDUCTION BAG ONE (20:55)
[2020-03-27] MEDS ORDERED: PROPOFOL IV EMULSION 10 MG/ML 100 ML VIAL IV ONE (21:03)
--- NOTE | 2020-03-27 21:11 | History & Physical Report ---
Date of Service March 27, 2020 Assessment & Plan (1) Admitted to intensive care unit: Admitted to intensive care unit for treatment of multifocal pneumonia due to COVID-19 virus/respiratory failure with hypoxia/intubation in the ED- Present on Admission?: Yes (2) Pneumonia due to COVID-19 virus: Multifocal pneumonia due to COVID-19 virus/respiratory failure with hypoxia- Consult state attorney Dr. Escobar and ICU team Ventilator management per ICU team Decadron 6 mg IV daily Convalescent plasma Remdesivir IV per protocol Vancomycin IV per pharmacokinetic monitoring Zosyn 4.5 g IV every 8 hours Doxycycline 100 mg IV every 12 hours Serial CBC with differential, chemistry profile, magnesium, PT/PT/INR, arterial blood gas and chest x-rays. Present on Admission?: Yes (3) Respiratory failure with hypoxia: See above Present on Admission?: Yes (4) Multifocal pneumonia: See above Present on Admission?: Yes (5) Hypokalemia: NSS + KCl 20 mEq at 60 mils per hour. Repeat laboratories as above. Present on Admission?: Yes History of Present Illness Chief Complaint: The patient presented to the emergency department with severe shortness of breath, and was noted to be hypoxic in the ambulance en route to the hospital in the mid 80s, and improved with a nonrebreather mask. Primary Care Provider: Trevor Rashid DO The patient is a 59-year-old male with a past medical history including obesity, BPH, hypertension, GERD, and asthma. The history is reported of the having been at [facility], and then went and then to [facility], where he was admitted for treatment of an unknown lung infection. He was discharged on a steroid taper and Levaquin. He had had Covid testing done as recently as 5 days ago, which was reportedly negative. His main symptoms reported were fever and cough. During his stay in the emergency department, the patient became more lethargic and less responsive, with decreased inspiratory volume. Decision was made to intubate patient in the emergency department, and admit to the ICU for further treatment. Allergies Allergy/AdvReac Type Severity Reaction Status Date / Time No Known Allergies Allergy Verified 03/27/20 16:42 Home Medications Home Medications Medication Instructions Recorded Confirmed Type amitriptyline 75 mg PO HS 01/13/19 03/27/20 History propranolol 10 mg PO AMHS 01/13/19 03/27/20 History albuterol sulfate 90 mcg/actuation 2 puffs INH Q6H PRN 11/09/19 03/27/20 History aerosol inhaler omeprazole 20 mg capsule,delayed 20 mg PO DAILY 11/09/19 03/27/20 History release levofloxacin 750 mg PO Q24H 03/27/20 03/27/20 History phenazopyridine 100 mg PO Q8H PRN 03/27/20 03/27/20 History prednisone See Rx Instructions .ROUTE .COMPLEX 03/27/20 03/27/20 History tamsulosin 0.4 mg PO DAILY 03/27/20 03/27/20 History Past Med/Surg History Medical History Chest x-ray abnormality Cough with sputum Exertional dyspnea No significant past medical history Obesity Obesity (BMI 30.0-34.9) Pulmonary scarring Sinusitis Snoring Family History Family/Other Cancer Diabetes Other No significant family history Social History Smoking Status: Never smoker Beliefs That Will Affect Care: None Current Living Situation: Family Feels Safe at Home: Yes Safety Concerns: Feels Safe At This Time Assistive Devices: Oxygen - Continuous Review of Systems Review of Systems: Unobtainable due to cognitive status and Unobtainable due to reduced consciousness Physical Exam Physical Exam: The patient is very lethargic, normocephalic and atraumatic, lying in bed and in moderate to severe distress. HEENT--PERRL, EOMI, mucous membranes and oropharynx dry. Neck--supple. No JVD. No bruits. Thyroid normal, trachea midline, no adeno deanne. Heart--normal S1 and S2. No murmurs, rubs or gallops. Lungs--clear bilaterally, no respiratory distress, no accessory muscle use. Abdomen--normal bowel sounds and soft. Nontender. Nondistended. Extremities--no cyanosis or clubbing. No edema. Dermatologic--normal skin turgor, normal color, no abnormal lymph nodes, no rash. Neurologic--cranial nerves II through XII grossly intact. Rheumatologic--limited exam Psychiatric--very lethargic Results & Data Results & Data ([facility]) Vital Signs (Past 12 Hours) Vital Signs Temp Pulse Pulse Resp BP Pulse Ox 03/27/20 21:00 77 30 H 156/90 H 97 03/27/20 20:45 76 5 L 100 03/27/20 20:30 76 32 H 156/90 H 98 03/27/20 20:15 76 31 H 96 03/27/20 20:00 76 18 152/90 H 96 03/27/20 19:45 75 26 H 96 03/27/20 19:30 75 15 146/85 H 94 03/27/20 19:15 75 27 H 94 03/27/20 19:00 76 28 H 154/86 H 95 03/27/20 18:45 82 27 H 144/82 H 97 03/27/20 18:15 74 29 H 92 03/27/20 18:00 76 28 H 90 03/27/20 17:53 91 03/27/20 17:47 82 38 H 78 L 03/27/20 17:30 89 32 H 158/97 H 93 03/27/20 17:15 79 28 H 94 03/27/20 17:01 79 32 H 146/86 H 95 03/27/20 17:00 83 29 H 93 03/27/20 16:45 81 28 H 93 03/27/20 16:30 87 25 H 118/76 92 03/27/20 16:15 76 28 H 94 03/27/20 16:00 79 28 H 137/77 93 03/27/20 15:45 77 25 H 92 03/27/20 15:30 74 27 H 139/82 94 03/27/20 15:26 72 22 95 03/27/20 15:15 71 30 H 94 03/27/20 15:00 71 22 139/85 95 03/27/20 14:45 71 27 H 96 03/27/20 14:25 98.6 F 72 24 142/77 H 83 L Code Status & VTE Plan VTE Prophylaxis Plan VTE Prophylaxis will be ordered: Yes Critical Care Time Critical Care Time: Yes Total Critical Care Time: 45 PG Care Time/CCT Total # of Minutes Spent Total Time Spent with Patient: Total time spent is greater than 50% in coordination of care (as documented) at patient's floor/unit and/or counseling patient: Critical Care Time: Yes Total Critical Care Time: 45 Coding Level of Care Code 89530 Initial Inpt Care Lvl 3 Diagnoses Admitted to intensive care unit Z78.9 Pneumonia due to COVID-19 virus U07.1; J12.89 Respiratory failure with hypoxia J96.91 Multifocal pneumonia J18.9 Hypokalemia E87.6 Additional Codes Critical Care Time - Critical Care Time: Yes ([id number]) Time Spent (min) 45
[2020-03-27] MEDS ORDERED: MIDAZOLAM HCL 5 MG/ML 1 ML VIAL IV STA (21:40)
[2020-03-27] MEDS ORDERED: levoFLOXacin/D5W 500 MG/100 ML BAG IV SCH (22:00)
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
[2020-03-27] MEDS ORDERED: NSS + 20MEQ KCL 20 MEQ/1,000 ML BAG IV SCH (22:08)
[2020-03-27] MEDS ORDERED: ENOXAPARIN 0.5 MG/KG SQ SCH (22:08)
[2020-03-27] MEDS ORDERED: VANCOMYCIN HCL 1,000 MG in SODIUM CHLORIDE 0.9% 250 ML IV SCH (22:08)
[2020-03-27] MEDS ORDERED: ICU PROTOCOL FOR HYPERGLYCEMIA PRN (22:08)
[2020-03-27] MEDS ORDERED: DEXAMETHASONE SOD INJ 4 MG/ML VIAL IV SCH (22:08)
[2020-03-27] MEDS ORDERED: PROPOFOL BOLUS FROM BAG IV PRN (22:18)
[2020-03-27] MEDS ORDERED: STAT IV Infusion **Titration per Protocol STA (22:18)
[2020-03-27] MEDS: DOXYCYCLINE HYCLATE 100 MG in DEXTROSE 5% 100 ML IV SCH (22:31)
[2020-03-27] MEDS: ENOXAPARIN 80 MG/0.8 ML SYR SQ SCH (22:31)
[2020-03-27] MEDS: FAMOTIDINE 20 MG in SYRINGE 3 ML IV SCH (22:31)
[2020-03-27] MEDS: fentaNYL DRIP 1,250 MCG/250 ML BAG IV SCH (22:34)
[2020-03-27] MEDS ORDERED: INFLUENZA VIRUS QUAD VACCINE 0.5 ML SYR IM ONE (22:59)
[2020-03-27] MEDS ORDERED: INFLUENZA ADMINISTRATION CHARGE ONE (22:59)
[2020-03-27] MEDS: propofoL 1,000 MG/100 ML VIAL IV SCH (23:18)
[2020-03-27] MEDS: PIPERACILLIN/TAZOBACTAM 4.5 GM in DEXTROSE 5% 100 ML IV SCH (23:32)
[2020-03-27 23:50] LABS: iSTAT Art Bld Gas pCO2 Correct 42 mmHg (35-46); iSTAT Art Bld Gas pH Corrected 7.377 (7.35-7.45); iSTAT Arterial Blood Gas HCO3 25 meg/L (19-24); iSTAT Arterial Blood Gas pCO2 41 mmHg (35-46); iSTAT Arterial Blood Gas pH 7.38 (7.35-7.45); iSTAT Arterial Blood Gas pO2 88 mmHg (80-95); iSTAT Arterial Blood Gas pO2 C 90; iSTAT Carbon Dioxide 26 mmol/L (24-31); iSTAT FiO2 70 %; iSTAT Hematocrit 40 % (42-52); iSTAT Hemoglobin 13.6 g/dl (14.0-18.0); iSTAT Potassium 3.5 mmol/L (3.3-5.0); iSTAT Site Art Line; iSTAT Sodium 141 mmol/L (135-144)
--- NOTE | 2020-03-27 23:56 | Procedure Note ---
Procedure Note Date of Service March 27, 2020 Procedure: Arterial Line Placement Attending: Dr. Castañeda APC: Manny Mahmood PA-C Indication: Monitoring on Pressors Anesthesia: Lidocaine 1% Emergent consent implied in the setting of respiratory failure and need for close respiratory gas monitoring as well as hemodynamic monitoring while sedated. Verbal consent obtained from via phone during conversation update. A time-out was completed verifying correct patient, procedure, site, positioning, and implant(s) or special equipment if applicable. Allens test was performed to ensure adequate perfusion. Patients LEFT wrist was prepped and draped in the usual sterile fashion. Ultrasound guidance was used to aid needle placement. A 20g Arrow arterial line was introduced into the LEFT Radial artery. Catheter was threaded, and the needle was removed with appropriate blood return. Good waveform was observed. The patient tolerated the procedure well. Confirmation of placement with ultrasound. Blood Loss: Minimal Complications: None Procedural Ultrasound Guidance: Procedure Date: 03/27/2020 Indication: ABGs, Poor access, Frequent labs Attending: Dr. Castañeda APC: Manny Mahmood PA-C Artery Identified: YES Line confirmed in Artery with ultrasound: YES Complications: NONE Patient tolerated procedure: WELL Coding CPT Codes Tubes, Drains, and Vasc Access - Tubes, Drains, and Vasc Access: [id number] Insertion Catheter, Artery ([id number]) [facility] Procedure Codes (Charges) Tubes, Drains, and Vasc Access Procedure 1: Tubes, Drains, and Vasc Access: [id number] Insertion Catheter, Artery
--- NOTE | 2020-03-27 23:57 | Procedure Note ---
Procedure Note Date of Service March 27, 2020 Procedure: Business Risk Analyst Indwelling Peripherally Inserted IV Catheter Placement Attending: Dr. Castañeda APC: Manny Mahmood PA-C Indication: Need for IV Access, Poor Vascular Access Anesthesia: None Consent implied given the need for good peripheral access in the Covid-19 positive patient with poor peripheral access. A time-out was completed verifying correct patient, procedure, site, positioning, and implant(s) or special equipment if applicable. Utilizing bedside ultrasound, vascularity of the RIGHT upper extremity was assessed. Vessel size was noted for appropriate catheter selection and skin was marked with gentle pressure. Patients RIGHT upper extremity was prepped and draped in the usual sterile fashion utilizing chlorhexidine. Ultrasound guidance was used to aid needle placement. A 20 g Endurance Catheter was introduced into the RIGHT forearm vein under direct ultrasound guidance. Guide wire was easily deployed without resistance. Catheter was threaded over the guide wire without resistance and the entire apparatus was removed intact. Good venous blood return was noted in the catheter. The IV catheter was easily flushed with sterile saline flush. Sterile clave was attached to the end of the catheter and good blood return was again noted. Tourniquet was released. StatLock device and sterile dressing were applied. The patient tolerated the procedure well. Blood Loss: Minimal Complications: None Procedural Ultrasound Guidance: Procedure Date: 03/27/2020 Indication: Poor Vascular Access Attending: Dr. Castañeda APC: Manny Mahmood PA-C Artery/Veins Identified: YES Access confirmed in Vein with ultrasound: YES Complications: NONE Patient tolerated procedure: WELL Coding
--- NOTE | 2020-03-27 23:57 | Procedure Note ---
Procedure Note Date of Service March 27, 2020 Procedure: Automobile Accessories Salesperson Indwelling Peripherally Inserted IV Catheter Placement Attending: Dr. Castañeda APC: Manny Mahmood PA-C Indication: Need for IV Access, Poor Vascular Access Anesthesia: None Consent implied in the critically ill patient with need for good peripheral access. A time-out was completed verifying correct patient, procedure, site, positioning, and implant(s) or special equipment if applicable. Utilizing bedside ultrasound, vascularity of the LEFT upper extremity was assessed. Vessel size was noted for appropriate catheter selection and skin was marked with gentle pressure. Patients LEFT upper extremity was prepped and draped in the usual sterile fashion utilizing chlorhexidine. Ultrasound guidance was used to aid needle placement. A 18 g Endurance Catheter was introduced into the LEFT cephalic vein under direct ultrasound guidance. Guide wire was easily deployed without resistance. Catheter was threaded over the guide wire without resistance and the entire apparatus was removed intact. Good venous blood return was noted in the catheter. The IV catheter was easily flushed with sterile saline flush. Sterile clave was attached to the end of the catheter and good blood return was again noted. Tourniquet was released. StatLock device and sterile dressing were applied. The patient tolerated the procedure well. Blood Loss: Minimal Complications: None Procedural Ultrasound Guidance: Procedure Date: 03/27/2020 Indication: Poor Vascular Access Attending: Dr. Castañeda APC: Manny Mahmood PA-C Artery/Veins Identified: YES Access confirmed in Vein with ultrasound: YES Complications: NONE Patient tolerated procedure: WELL Coding
[2020-03-28 00:12] LABS: Ferritin 1294.5 ng/ml (8-388); Phosphorus 2.5 mg/dl (2.5-4.9); Troponin I < 0.015 ng/ml (0-0.045)
[2020-03-28 01:23] LABS: Adenovirus PCR Not Detected (NotDetected); Bordetella parapertussis PCR Not Detected (NotDetected); Bordetella pertussis PCR Not Detected (NotDetected); Chlamydia pneumoniae PCR Not Detected (NotDetected); Coronavirus 229E PCR Not Detected (NotDetected); Coronavirus HKU1 PCR Not Detected (NotDetected); Coronavirus NL63 PCR Not Detected (NotDetected); Coronavirus OC43PCR Not Detected (NotDetected); Human Metapneumovirus PCR Not Detected (NotDetected); Influenza A PCR Not Detected (NotDetected); Influenza B PCR Not Detected (NotDetected); Mycoplasma pneumoniae PCR Not Detected (NotDetected); Parainfluenza Virus 1 PCR Not Detected (NotDetected); Parainfluenza Virus 2 PCR Not Detected (NotDetected); Parainfluenza Virus 3 PCR Not Detected (NotDetected); Parainfluenza Virus 4 PCR Not Detected (NotDetected); Respiratory Syncytial VirusPCR Not Detected (NotDetected); Rhinovirus/Enterovirus PCR Not Detected (NotDetected)
[2020-03-28 01:25] LABS: Coronavirus CoV-2 (COVID19)PCR DETECTED (NotDetected)
[2020-03-28] MEDS: propofoL 1,000 MG/100 ML VIAL IV SCH ×7 (01:56→20:49)
[2020-03-28] MEDS ORDERED: REMDESIVIR 200 MG in SODIUM CHLORIDE 0.9% 210 ML IV ONE (02:00)
[2020-03-28] MEDS: SODIUM CHLORIDE 0.9% 10ML FLUSH IV SCH (04:30)
[2020-03-28 04:53] LABS: Basophils # (auto) 0.02 K/uL (0-0.2); Basophils % (auto) 0.1 %; Hematocrit (blood only) 38.7 % (42-52); Immature Granulocytes # (auto) 0.17 K/uL (0.00-0.02); Immature Granulocytes % (auto) 1.2 %; Lymphocytes # (auto) 0.75 K/uL (1.2-3.4); Lymphocytes % (auto) 5.4 %; Mean Corpuscular Hemoglobin 31.4 pg (25-34); Mean Corpuscular Hgb Conc 33.6 g/dL (32-36); Mean Corpuscular Volume 93.5 fL (80-100); Mean Platelet Volume 10.1 fL (7.4-10.4); Monocytes % (auto) 3.6 %; Neutrophils % (auto) 89.7 %; Platelet Count 235 K/uL (130-400); RDW Coefficient of Variation 13.4 % (11.5-14.5); RDW Standard Deviation 46.4 fL (36.4-46.3); Red Blood Count 4.14 M/uL (4.7-6.1); White Blood Count 13.94 K/uL (4.8-10.8)
[2020-03-28 04:54] LABS: iSTAT Arterial Blood Gas HCO3 23 meg/L (19-24); iSTAT Arterial Blood Gas pCO2 40 mmHg (35-46); iSTAT Arterial Blood Gas pH 7.38 (7.35-7.45); iSTAT Arterial Blood Gas pO2 75 mmHg (80-95); iSTAT Carbon Dioxide 24 mmol/L (24-31); iSTAT FiO2 60 %; iSTAT Site Art Line
[2020-03-28 05:04] LABS: INR 1.1 (0.9-1.1); Partial Thromboplastin Ratio 1.2; Partial Thromboplastin Time 32.4 Seconds (21.0-31.0); Prothrombin Time 11.9 Seconds (9.0-12.0)
[2020-03-28 05:31] LABS: Albumin Level 2.1 gm/dl (3.4-5.0); BUN Creatinine Ratio 23.8 (10-20); Calcium 7.3 mg/dl (8.5-10.1); Creatinine Clr Calc Pharmacy 114.2 ml/min; Est GFR (African American) 91.7; Est GFR (Non-African American) 79.1; Magnesium 1.7 mg/dl (1.8-2.4); Potassium 3.6 mmol/L (3.5-5.1)
[2020-03-28 05:33] LABS: Albumin Globulin Ratio 0.6 (0.9-2); Bilirubin,Total 1.1 mg/dl (0.2-1); Globulin 3.8 gm/dl (2.5-4.0); Phosphorus 2.7 mg/dl (2.5-4.9); Total Protein 5.9 gm/dl (6.4-8.2)
[2020-03-28] MEDS ORDERED: VANCOMYCIN HCL 1,500 MG in SODIUM CHLORIDE 0.9% 500 ML IV SCH (06:00)
[2020-03-28] MEDS: MAGNESIUM SULFATE / D5W 1 GM/100 ML BAG IV SCH ×2 (06:22→08:08)
--- NOTE | 2020-03-28 06:53 | Communication Note ---
Date of Service: March 28, 2020 0625: I did reach out to the patient's , Ankita regarding positive COVID-19 test results. She was encouraged to self quarantine and reach out to her PCP for any further guidance. At this point, she reports that she is completely asymptomatic. She agrees to continue to self quarantine. She was provided contact information to the ICU as well as an update on her . She does provide verbal consent for me to reach out to [facility] where the patient was just discharged on 03/26 after a 3-day admission. 0645: I did contact [facility] and speak to clinical staff regarding patient's positive COVID-19 test. This was done as a courtesy as patient had tested negative at their institution on 03/25. Coding Level of Care Code None
[2020-03-28] MEDS ORDERED: POTASSIUM PHOS 3 MMOL/1 ML INFUSION IV STA (07:34)
[2020-03-28] MEDS ORDERED: POTASSIUM PHOSPHATE 30 MMOL in SODIUM CHLORIDE 0.9% 500 ML IV STA (07:37)
--- NOTE | 2020-03-28 08:01 | XRay Report ---
XR chest 1V portable HISTORY: 59 years-old Male Post intubation acute respiratory failure COMPARISON: Chest radiograph and CTA chest studies of same day TECHNIQUE: Portable AP view of the chest FINDINGS: Endotracheal tube overlies the midline, 2.9 cm superior to the samuel. Enteric tube courses below the diaphragm with distal tip outside the field of view. Unchanged right hemidiaphragmatic elevation. Tr navin pleural effusions. Extensive bilateral mixed interstitial and alveolar opacities moderately worse chace. Cardiomegaly. No pneumothorax. Remote fracture deformity of the left scapula with ORIF changes o f the left clavicle. IMPRESSION: 1. Endotracheal tube overlies the midline, 2.9 cm superior to the samuel. 2. Extensive bilateral mixed interstitial and alveolar opacities have moderately worsened. ACT 112: Negative or not required by law. The above report was generated using voice recognition software. It may contain grammatical, syntax o r spelling errors. Electronically signed by: Dick Loera M.D. 03/28/2020 7:59 AM
[2020-03-28] MEDS: PIPERACILLIN/TAZOBACTAM 4.5 GM in DEXTROSE 5% 100 ML IV SCH ×3 (08:08→23:26)
[2020-03-28] MEDS: dexAMETHasone 6 MG in SYRINGE 0 ML IV SCH (08:09)
--- NOTE | 2020-03-28 08:14 | XRay Report ---
XR chest 1V portable HISTORY: Breast heart failure. COMPARISON: Chest 05/27/2019. FINDINGS: Endotracheal tube terminates 4.1 cm from the samuel. No pneumothorax. The heart remains mil dly enlarged. Nasogastric tube terminates below the diaphragm. The tip is not included on this study. Postoperative changes within the left clavicle. Bilateral airspace opacities have slightly improved. Old posttraumatic changes within the left scapula. IMPRESSION: 1. Satisfactory support line placement. 2. Slight improved aeration within the lungs. ACT 112: Negative or not required by law. Electronically signed by: Ney Rizo M.D. 03/28/2020 8:13 AM
[2020-03-28] MEDS: DOXYCYCLINE HYCLATE 100 MG in DEXTROSE 5% 100 ML IV SCH ×2 (11:00→21:25)
[2020-03-28] MEDS: FAMOTIDINE 20 MG in SYRINGE 3 ML IV SCH ×2 (11:00→21:25)
[2020-03-28] MEDS: D5W AND 1/2NSS 1,000 ML IV SCH (11:01)
[2020-03-28] MEDS: ENOXAPARIN INJ 60 MG/0.6 ML SYR SQ SCH ×2 (11:02→23:26)
[2020-03-28] MEDS: fentaNYL DRIP 1,250 MCG/250 ML BAG IV SCH (11:31)
[2020-03-28] MEDS: INSULIN ASPART 100 UNITS/ML 3 ML PEN SC SCH ×3 (11:32→21:05)
[2020-03-28 11:35] LABS: iSTAT Hematocrit 42 % (42-52); iSTAT Hemoglobin 14.3 g/dl (14.0-18.0); iSTAT Potassium 3.3 mmol/L (3.3-5.0); iSTAT Sodium 140 mmol/L (135-144)
[2020-03-28 11:36] LABS: iSTAT Arterial Blood Gas HCO3 24 meg/L (19-24); iSTAT Arterial Blood Gas pCO2 32 mmHg (35-46); iSTAT Arterial Blood Gas pH 7.48 (7.35-7.45); iSTAT Arterial Blood Gas pO2 59 mmHg (80-95); iSTAT Carbon Dioxide 25 mmol/L (24-31)
[2020-03-28 11:37] LABS: iSTAT Sample Type Arterial
--- NOTE | 2020-03-28 12:55 | Critical Care Progress Note ---
Date of Service March 28, 2020 Assessment & Plan (1) Pneumonia due to COVID-19 virus: -- VDRF Likely secondary to COVID-19 pneumonia Continue with ventilatory support Keep RASS -1 Daily sedation holidays and SBT's Chlorhexidine mouthwash --COVID-19 pneumonia Influenza A/B: Negative, COVID-19: +ve 03/27/2020 Ferritin: 1295, LDH 342, D-dimer 2029 Procalcitonin 0.06 Continue with dexamethasone for total of 10 days 6 mg Continue with remdesivir for total of 5 days. --> Monitor creatinine and LFTs --Right lobe pulmonary scarring Minimal Mildly reduced DLCO on PFTs 07/2019 --Hypertension Blood pressure medications on hold --Obesity --Hypokalemia, hypomagnesemia Being replaced --Prophylaxis VTE: Lovenox GI: Pepcid Lines: Right IJ, left radial Diet: N.p.o. Plan: In/out +749, urine output 875 Go down on propofol as the patient is RASS -2. Go down on FiO2 to keep O2 saturation greater than 90. Continue with remdesivir and dexamethasone. DC vancomycin given nasal MRSA is negative. Repeat procalcitonin in the morning, if it is negative can DC Zosyn. Change IV fluids to D5 half at 50. Hypomagnesemia and hypokalemia being replaced I have personally spent 39 minutes of critical care time in the direct management of this patient. This is a life/limb threatening event. This includes time spent evaluating patient, direct bedside care, chart review, placing orders, interpretation of diagnostic studies, discussion with consultants, patient, and family members, as well as other required patient management activities. This time is exclusive of all separately billable procedures, and teaching time and separate from and in addition to any other critical care service time. Please note the above document was generated using voice recognition software. It may contain grammatical, syntax or spelling errors. (2) Multifocal pneumonia: (3) Respiratory failure with hypoxia: (4) Obesity (BMI 30.0-34.9): (5) Pulmonary scarring: Admission and Anticipated Discharge Date Admission Date: March 27, 2020 Subjective Patient seen and examined at bedside. No acute distress, no adverse events overnight. On fentanyl 100 and propofol 45 at the time of examination. Patient was RASS -2. Not breathing over the vent. Afebrile in the hospital. Review of Systems Review of Systems: Unobtainable due to cognitive status and Unobtainable due to endotracheal tube Physical Exam Physical Exam: Constitutional: No acute distress HEENT: PERRLA, sluggish response Respiratory system: Decreased air entry bilaterally, no wheeze, no rhonchi, positive crackles bilateraly CVS: S1-S2 positive, no murmurs or gallops, bradycardia Abdomen: Soft, nontender, nondistended, positive bowel sounds x4 Extremities: +2 pulses bilaterally radialis/ dorsalis pedis, no cyanosis, no edema Neuro: Positive pupil, positive gag, positive corneal, RASS -2 Psych: Unable to assess G/U: Positive Alexander Skin: no rashes, warm and dry Lymphatic: no cervical or axillary lymphadenopathy Results & Data Results & Data ([facility]) Vital Signs (Past 12 Hours) Vital Signs Temp Pulse Resp BP Pulse Ox 03/28/20 11:06 47 L 20 91 03/28/20 09:00 35.7 C L 49 L 91 03/28/20 08:45 35.7 C L 49 L 91 03/28/20 08:30 35.7 C L 49 L 92 03/28/20 08:21 35.7 C L 50 L 107/47 L 93 03/28/20 08:15 35.7 C L 51 L 93 03/28/20 08:00 35.6 C L 51 L 92 03/28/20 07:45 35.6 C L 47 L 93 03/28/20 07:40 48 L 20 93 03/28/20 07:30 35.6 C L 49 L 93 03/28/20 07:21 35.6 C L 49 L 102/50 L 93 03/28/20 07:15 35.6 C L 49 L 93 03/28/20 07:00 35.7 C L 49 L 93 03/28/20 06:45 35.7 C L 50 L 93 03/28/20 06:30 35.7 C L 50 L 93 03/28/20 06:21 35.8 C L 50 L 87/43 L 93 03/28/20 06:15 35.8 C L 50 L 94 03/28/20 06:00 35.8 C L 51 L 94 03/28/20 05:45 35.8 C L 51 L 93 03/28/20 05:30 35.8 C L 52 L 92 03/28/20 05:21 35.8 C L 53 L 97/76 L 92 03/28/20 05:15 35.8 C L 54 L 92 03/28/20 05:00 35.9 C L 52 L 93 03/28/20 04:56 52 L 20 93 03/28/20 04:30 35.9 C L 53 L 93 03/28/20 04:21 35.9 C L 53 L 93 03/28/20 04:00 36.0 C L 53 L 93 03/28/20 03:30 36.0 C L 54 L 93 03/28/20 03:21 36.1 C L 55 L 88/55 L 93 03/28/20 03:00 36.1 C L 55 L 94 03/28/20 02:30 36.3 C L 56 L 94 03/28/20 02:21 36.3 C L 57 L 94 03/28/20 02:00 36.4 C L 59 L 94 03/28/20 01:45 36.5 C 60 93 03/28/20 01:30 36.6 C 61 94 03/28/20 01:21 36.6 C 61 87/54 L 93 03/28/20 01:15 36.6 C 63 94 03/28/20 01:11 62 20 94 03/28/20 01:02 36.8 C 62 100/60 93 03/28/20 01:00 36.8 C 63 94 03/28/20 04:42 03/28/20 04:42 Coding Level of Care Code Critical Care 1st 30-74 mins Diagnoses Pneumonia due to COVID-19 virus U07.1; J12.89 Multifocal pneumonia J18.9 Respiratory failure with hypoxia J96.91 Obesity (BMI 30.0-34.9) E66.9 Pulmonary scarring J98.4 Time Spent (min) 39
[2020-03-28] MEDS: ENOXAPARIN 80 MG/0.8 ML SYR SQ SCH (20:21)
[2020-03-29] MEDS: fentaNYL DRIP 1,250 MCG/250 ML BAG IV SCH ×3 (00:42→23:26)
[2020-03-29] MEDS: propofoL 1,000 MG/100 ML VIAL IV SCH ×6 (00:42→23:30)
[2020-03-29] MEDS: REMDESIVIR 100mg: Days 2-5 IV SCH (02:43)
[2020-03-29 03:43] LABS: iSTAT Arterial Blood Gas HCO3 24 meg/L (19-24); iSTAT Arterial Blood Gas pCO2 39 mmHg (35-46); iSTAT Arterial Blood Gas pO2 73 mmHg (80-95); iSTAT Carbon Dioxide 26 mmol/L (24-31); iSTAT FiO2 70 %; iSTAT Site Art Line
[2020-03-29] MEDS: SODIUM CHLORIDE 0.9% 10ML FLUSH IV SCH (04:30)
[2020-03-29 05:00] LABS: Basophils # (auto) 0.02 K/uL (0-0.2); Basophils % (auto) 0.2 %; Hematocrit (blood only) 39.4 % (42-52); Hemoglobin 13.3 g/dL (14.0-18.0); Immature Granulocytes # (auto) 0.42 K/uL (0.00-0.02); Immature Granulocytes % (auto) 3.6 %; Lymphocytes # (auto) 1.09 K/uL (1.2-3.4); Lymphocytes % (auto) 9.4 %; Mean Corpuscular Hemoglobin 31.8 pg (25-34); Mean Corpuscular Hgb Conc 33.8 g/dL (32-36); Mean Corpuscular Volume 94.3 fL (80-100); Mean Platelet Volume 10.6 fL (7.4-10.4); Monocytes # (auto) 1.09 K/uL (0.11-0.59); Monocytes % (auto) 9.4 %; Neutrophils # (auto) 9.02 K/uL (1.4-6.5); Neutrophils % (auto) 77.4 %; Platelet Count 272 K/uL (130-400); RDW Coefficient of Variation 13.7 % (11.5-14.5); RDW Standard Deviation 47.4 fL (36.4-46.3); Red Blood Count 4.18 M/uL (4.7-6.1); White Blood Count 11.64 K/uL (4.8-10.8)
[2020-03-29 05:13] LABS: INR 1.1 (0.9-1.1); Partial Thromboplastin Ratio 1.1; Partial Thromboplastin Time 30.7 Seconds (21.0-31.0); Prothrombin Time 11.7 Seconds (9.0-12.0)
[2020-03-29 05:40] LABS: Creatinine Clr Calc Pharmacy 120.1 ml/min; Est GFR (African American) 96.2; Potassium 3.8 mmol/L (3.5-5.1)
[2020-03-29 05:42] LABS: Albumin Globulin Ratio 0.5 (0.9-2); Bilirubin,Total 0.6 mg/dl (0.2-1); Globulin 3.7 gm/dl (2.5-4.0); Phosphorus 3.6 mg/dl (2.5-4.9); Total Protein 5.7 gm/dl (6.4-8.2)
[2020-03-29] MEDS: D5W AND 1/2NSS 1,000 ML IV SCH (06:10)
[2020-03-29] MEDS: POTASSIUM CHLORIDE / WTR 10 MEQ/100 ML PLCT IV SCH ×2 (06:11→08:21)
[2020-03-29] MEDS ORDERED: POTASSIUM PHOS 3 MMOL/1 ML INFUSION IV STA (07:04)
[2020-03-29] MEDS ORDERED: FUROSEMIDE 40 MG in SYRINGE 0 ML IV ONE (07:15)
[2020-03-29] MEDS ORDERED: POTASSIUM PHOSPHATE 15 MMOL in SODIUM CHLORIDE 0.9% 250 ML IV ONE (07:30)
[2020-03-29] MEDS: INSULIN ASPART 100 UNITS/ML 3 ML PEN SC SCH ×3 (08:23→18:40)
[2020-03-29] MEDS: PIPERACILLIN/TAZOBACTAM 4.5 GM in DEXTROSE 5% 100 ML IV SCH ×2 (08:25→14:57)
--- NOTE | 2020-03-29 09:13 | XRay Report ---
XR chest 1V portable HISTORY: Respiratory failure. intubated COMPARISON: Chest 03/28/2020. FINDINGS: The endotracheal tube terminates 3.2 cm from the samuel. There are low lung volumes. No pne umothorax. Patchy bilateral airspace opacities persist. The heart remains mildly enlarged. No pleural effusions. Nasogastric tube terminates below the diaphragm. The tip is not included on this study. I nternal fixation of an old, healed left clavicle fracture. There is also an old, healed left scapular fracture. IMPRESSION: 1. Satisfactory support line placement. 2. No change in the bilateral airspace opacities. ACT 112: Negative or not required by law. Electronically signed by: Ney Rizo M.D. 03/29/2020 9:12 AM
[2020-03-29] MEDS ORDERED: Nursing to Pharmacy Communication SCH (10:45)
[2020-03-29] MEDS ORDERED: PEPTAMEN INTENSE VHP 1.0 CAL 1,000 ML BAG OG SCH ×2 (10:45→11:00)
[2020-03-29] MEDS: dexAMETHasone 6 MG in SYRINGE 0 ML IV SCH (10:48)
[2020-03-29] MEDS: FAMOTIDINE 20 MG in SYRINGE 3 ML IV SCH ×2 (10:49→20:25)
[2020-03-29] MEDS: DOXYCYCLINE HYCLATE 100 MG in DEXTROSE 5% 100 ML IV SCH ×2 (10:58→22:01)
[2020-03-29] MEDS: ENOXAPARIN INJ 60 MG/0.6 ML SYR SQ SCH ×2 (10:58→22:12)
--- NOTE | 2020-03-29 11:08 | Critical Care Progress Note ---
Date of Service March 29, 2020 Assessment & Plan (1) Pneumonia due to COVID-19 virus: -- VDRF Likely secondary to COVID-19 pneumonia Continue with ventilatory support Keep RASS -1 Daily sedation holidays and SBT's Chlorhexidine mouthwash --COVID-19 pneumonia Influenza A/B: Negative, COVID-19: +ve 03/27/2020 Ferritin: 1295, LDH 342, D-dimer 2029 Procalcitonin 0.06 --> 0.05 03/29/2020 Continue with dexamethasone for total of 10 days 6 mg Continue with remdesivir for total of 5 days. --> Monitor creatinine and LFTs --Right lobe pulmonary scarring Minimal Mildly reduced DLCO on PFTs 07/2019 --Hypertension Blood pressure medications on hold --Obesity --Prophylaxis VTE: Lovenox 60 mg twice daily GI: Pepcid Lines: Peripheral, left radial Diet: Start feeding today Plan: In/out: +3.2 L, urine output 1900 AB.4/39/73 on 70% with PEEP of 8 Chest x-ray from today still shows bilateral infiltrates more on the left side. Patient is +3.2 L. We will give him a dose of Lasix. Would like him to be euvolemic. Titrate down FiO2 to keep saturation between 88-92% We will start tube feeding today. Procalcitonin was 0.05 today. Will discontinue Zosyn after today's dose. Continue with doxycycline for total of 5 days I have personally spent 37 minutes of critical care time in the direct management of this patient. This is a life/limb threatening event. This includes time spent evaluating patient, direct bedside care, chart review, placing orders, interpretation of diagnostic studies, discussion with consultants, patient, and family members, as well as other required patient management activities. This time is exclusive of all separately billable procedures, and teaching time and separate from and in addition to any other critical care service time. Please note the above document was generated using voice recognition software. It may contain grammatical, syntax or spelling errors. (2) Multifocal pneumonia: (3) Respiratory failure with hypoxia: (4) Obesity (BMI 30.0-34.9): (5) Pulmonary scarring: Admission and Anticipated Discharge Date Admission Date: March 27, 2020 Subjective Patient seen and examined at bedside. No acute distress. Early in the morning around 3 AM when the patient was being cleaned he desaturated and had to be bumped up to 70% FiO2 At the time of examination patient was on fentanyl 125, propofol 30 He is RASS -1 Following simple commands. Denies any pain. Afebrile Review of Systems Review of Systems: All systems reviewed & are unremarkable except as noted in Subjective and Unobtainable due to endotracheal tube Physical Exam Physical Exam: Constitutional: No acute distress HEENT: PERRLA Respiratory system: Decreased air entry bilaterally, no wheeze, no rhonchi, positive crackles bilateraly CVS: S1-S2 positive, no murmurs or gallops, bradycardia Abdomen: Soft, nontender, nondistended, positive bowel sounds x4 Extremities: +2 pulses bilaterally radialis/ dorsalis pedis, no cyanosis, no ed janeth Neuro: Positive pupil, positive gag, positive corneal, RASS -1 Psych: Unable to assess G/U: Positive Alexander Skin: no rashes, warm and dry Lymphatic: no cervical or axillary lymphadenopathy Results & Data Results & Data ([facility]) Vital Signs (Past 12 Hours) Vital Signs Temp Pulse Resp BP Pulse Ox 03/29/20 10:30 54 L 95 03/29/20 10:25 52 L 21 96 03/29/20 08:45 36.6 C 66 92 03/29/20 08:30 36.5 C 63 94 03/29/20 08:22 36.5 C 59 L 91 03/29/20 08:16 53 L 21 90 03/29/20 08:15 36.4 C L 54 L 92 03/29/20 08:00 36.4 C L 69 92 03/29/20 07:45 36.4 C L 52 L 97 03/29/20 07:30 36.4 C L 51 L 96 03/29/20 07:21 36.4 C L 49 L 96 03/29/20 07:15 36.4 C L 49 L 96 03/29/20 07:00 36.4 C L 49 L 97 03/29/20 06:00 36.5 C 47 L 96 03/29/20 05:21 36.6 C 49 L 122/80 95 03/29/20 05:00 36.6 C 49 L 96 03/29/20 04:22 36.8 C 51 L 96 03/29/20 04:00 36.9 C 51 L 95 03/29/20 03:30 50 L 20 94 03/29/20 03:21 36.9 C 57 L 95 03/29/20 03:00 36.9 C 53 L 92 03/29/20 02:45 36.8 C 54 L 93 03/29/20 02:30 36.8 C 57 L 93 03/29/20 02:22 36.8 C 65 83/53 L 91 03/29/20 02:15 36.7 C 61 92 03/29/20 02:00 36.6 C 64 84 L 03/29/20 01:45 36.6 C 58 L 87 L 03/29/20 01:30 36.5 C 58 L 91 03/29/20 01:15 36.5 C 60 93 03/29/20 01:00 36.4 C L 49 L 92 03/29/20 00:00 36.4 C L 50 L 92 03/28/20 23:58 54 L 03/28/20 23:45 36.4 C L 51 L 93 03/28/20 23:30 36.4 C L 48 L 94 03/28/20 23:21 36.4 C L 49 L 93 03/28/20 23:20 49 L 20 93 03/28/20 23:15 36.4 C L 51 L 94 03/29/20 04:45 03/29/20 04:45 Coding Level of Care Code Critical Care 1st 30-74 mins Diagnoses Pneumonia due to COVID-19 virus U07.1; J12.89 Multifocal pneumonia J18.9 Respiratory failure with hypoxia J96.91 Obesity (BMI 30.0-34.9) E66.9 Pulmonary scarring J98.4 Time Spent (min) 37
--- NOTE | 2020-03-29 11:47 | Hospitalist Progress Note ---
Date of Service March 29, 2020 Assessment & Plan (1) Admitted to intensive care unit: Admitted to intensive care unit for treatment of multifocal pneumonia due to COVID-19 virus/respiratory failure with hypoxia/intubation in the ED- (2) Pneumonia due to COVID-19 virus: Multifocal pneumonia due to COVID-19 virus/respiratory failure with hypoxi a- Consult claims counsel Dr. Escobar and ICU team Ventilator management per ICU team Standard Covid treatments including Decadron, Remdesivir IV per protocol. Consider convalescent plasma per ICU team. - Stopped vancomycin IV per pharmacokinetic monitoring - Zosyn & Doxycycline per ICU team (3) Respiratory failure with hypoxia: See above (4) Multifocal pneumonia: See above (5) Hypokalemia: NSS + KCl 20 mEq at 60 mils per hour. Repeat laboratories as above. Admission and Anticipated Discharge Date Admission Date: March 27, 2020 Subjective Remains intubated. Review of Systems Review of Systems: Unobtainable due to endotracheal tube Physical Exam Constitutional: + acute distress and + ill appearing Eyes: EOM intact bilaterally; no conjunctival abnormality ENMT: external ear and nose normal, oropharynx normal Mouth / Teeth: 1. Intubated Neck: trachea midline, no thyromegaly normal visual inspection Respiratory: + labored breathing and + tachypneic; no respiratory distress and no cough Cardiovascular: Rate/Rhythm: regular rhythm and + bradycardic Heart Sounds: normal S1 and normal S2 Gastrointestinal (Abdomen): Inspection/Auscultation: abdomen normal to inspection; abdomen not distended Musculoskeletal: no cyanosis or clubbing, extremities motor strength 5/5 Skin: no rashes, warm and dry Neurologic: moves all extremities and awake Psychiatric: Orientation: cooperative; + not alert and + not oriented to person Results & Data Results & Data ([facility]) Vital Signs (Past 12 Hours) Vital Signs Temp Pulse Resp BP Pulse Ox 03/29/20 10:30 54 L 95 03/29/20 10:25 52 L 21 96 03/29/20 08:45 36.6 C 66 92 03/29/20 08:30 36.5 C 63 94 03/29/20 08:22 36.5 C 59 L 91 03/29/20 08:16 53 L 21 90 03/29/20 08:15 36.4 C L 54 L 92 03/29/20 08:00 36.4 C L 69 92 03/29/20 07:45 36.4 C L 52 L 97 03/29/20 07:30 36.4 C L 51 L 96 03/29/20 07:21 36.4 C L 49 L 96 03/29/20 07:15 36.4 C L 49 L 96 03/29/20 07:00 36.4 C L 49 L 97 03/29/20 06:00 36.5 C 47 L 96 03/29/20 05:21 36.6 C 49 L 122/80 95 03/29/20 05:00 36.6 C 49 L 96 03/29/20 04:22 36.8 C 51 L 96 03/29/20 04:00 36.9 C 51 L 95 03/29/20 03:30 50 L 20 94 03/29/20 03:21 36.9 C 57 L 95 03/29/20 03:00 36.9 C 53 L 92 03/29/20 02:45 36.8 C 54 L 93 03/29/20 02:30 36.8 C 57 L 93 03/29/20 02:22 36.8 C 65 83/53 L 91 03/29/20 02:15 36.7 C 61 92 03/29/20 02:00 36.6 C 64 84 L 03/29/20 01:45 36.6 C 58 L 87 L 03/29/20 01:30 36.5 C 58 L 91 03/29/20 01:15 36.5 C 60 93 03/29/20 01:00 36.4 C L 49 L 92 03/29/20 00:00 36.4 C L 50 L 92 03/28/20 23:58 54 L 03/28/20 23:45 36.4 C L 51 L 93 PG Care Time/CCT Total # of Minutes Spent Total Time Spent with Patient: Total time spent is greater than 50% in coordination of care (as documented) at patient's floor/unit and/or counseling patient: Coding Level of Care Code 46072 Subseq Hosp Care Lvl 3 Diagnoses Admitted to intensive care unit Z78.9 Pneumonia due to COVID-19 virus U07.1; J12.89 Respiratory failure with hypoxia J96.91 Multifocal pneumonia J18.9 Hypokalemia E87.6
[2020-03-29 15:47] LABS: BUN Creatinine Ratio 23.5 (10-20); Calcium 8.2 mg/dl (8.5-10.1); Creatinine Clr Calc Pharmacy 110.1 ml/min; Est GFR (African American) 86.6; Est GFR (Non-African American) 74.7; Magnesium 1.9 mg/dl (1.8-2.4); Potassium 3.9 mmol/L (3.5-5.1)
[2020-03-29] MEDS ORDERED: ONDANSETRON INJ 2 MG/ML 2 ML VIAL ONE (19:18)
[2020-03-29] MEDS: ONDANSETRON INJ 2 MG/ML 2 ML VIAL IV PRN (19:21)
[2020-03-29] MEDS: ACETAMINOPHEN 1,000 MG/100 ML VIAL IV PRN (22:00)
[2020-03-30] MEDS: PIPERACILLIN/TAZOBACTAM 4.5 GM in DEXTROSE 5% 100 ML IV SCH (00:10)
[2020-03-30] MEDS: INSULIN ASPART 100 UNITS/ML 3 ML PEN SC SCH ×3 (00:41→12:53)
[2020-03-30] MEDS: D5W AND 1/2NSS 1,000 ML IV SCH ×2 (00:48→21:20)
[2020-03-30] MEDS: ONDANSETRON INJ 2 MG/ML 2 ML VIAL IV PRN ×2 (00:48→12:07)
[2020-03-30] MEDS ORDERED: REMDESIVIR 100mg: Days 2-5 IV SCH (02:00)
[2020-03-30] MEDS: REMDESIVIR 100mg: Days 2-5 IV SCH (02:18)
[2020-03-30] MEDS: SODIUM CHLORIDE 0.9% 10ML FLUSH IV SCH (03:35)
[2020-03-30 05:21] LABS: Hematocrit (blood only) 43.8 % (42-52); Hemoglobin 14.7 g/dL (14.0-18.0); Mean Corpuscular Hemoglobin 31.3 pg (25-34); Mean Corpuscular Hgb Conc 33.6 g/dL (32-36); Mean Corpuscular Volume 93.4 fL (80-100); Mean Platelet Volume 10.8 fL (7.4-10.4); Nucleated RBC # (auto) 0.02 K/uL (0-0); Nucleated RBC % (auto) 0.2 %; Platelet Count 316 K/uL (130-400); RDW Coefficient of Variation 13.3 % (11.5-14.5); RDW Standard Deviation 45.5 fL (36.4-46.3); Red Blood Count 4.69 M/uL (4.7-6.1); White Blood Count 10.14 K/uL (4.8-10.8)
[2020-03-30 05:41] LABS: INR 1.1 (0.9-1.1); Partial Thromboplastin Time 27.6 Seconds (21.0-31.0); Prothrombin Time 11.6 Seconds (9.0-12.0)
[2020-03-30 05:43] LABS: Albumin Level 2.2 gm/dl (3.4-5.0); BUN Creatinine Ratio 31.3 (10-20); Calcium 7.8 mg/dl (8.5-10.1); Creatinine Clr Calc Pharmacy 121.3 ml/min; Est GFR (African American) 97.4; Est GFR (Non-African American) 84.1; Magnesium 1.8 mg/dl (1.8-2.4); Potassium 3.4 mmol/L (3.5-5.1)
[2020-03-30 05:46] LABS: Albumin Globulin Ratio 0.6 (0.9-2); Bilirubin,Total 0.7 mg/dl (0.2-1); Globulin 3.9 gm/dl (2.5-4.0); Phosphorus 2.9 mg/dl (2.5-4.9); Total Protein 6.1 gm/dl (6.4-8.2)
[2020-03-30] MEDS ORDERED: POTASSIUM CHLORIDE / WTR 10 MEQ/100 ML PLCT IV STA (05:57)
[2020-03-30] MEDS ORDERED: POTASSIUM CHLORIDE 20 MEQ/15 ML UDC PO STA (05:58)
[2020-03-30 06:05] LABS: Basophils # (auto) 0.05 K/uL (0-0.2); Basophils % (auto) 0.5 %; Eosinophils # (auto) 0.01 K/uL (0-0.5); Eosinophils % (auto) 0.1 %; Immature Granulocytes # (auto) 0.67 K/uL (0.00-0.02); Immature Granulocytes % (auto) 6.6 %; Lymphocytes % (auto) 16.8 %; Monocytes # (auto) 1.18 K/uL (0.11-0.59); Monocytes % (auto) 11.6 %; Neutrophils # (auto) 6.53 K/uL (1.4-6.5); Neutrophils % (auto) 64.4 %
[2020-03-30] MEDS: ACETAMINOPHEN 1,000 MG/100 ML VIAL IV PRN (06:38)
[2020-03-30] MEDS: MAGNESIUM SULFATE / D5W 1 GM/100 ML BAG IV SCH ×2 (06:39→08:14)
[2020-03-30] MEDS: dexAMETHasone 6 MG in SYRINGE 0 ML IV SCH (08:14)
[2020-03-30] MEDS: FAMOTIDINE 20 MG in SYRINGE 3 ML IV SCH ×2 (08:22→21:23)
--- NOTE | 2020-03-30 09:10 | XRay Report ---
XR chest 1V portable CLINICAL HISTORY: COVID pneumonia COMPARISON STUDY: Chest CT March 27, 2020. Chest radiograph March 29, 2020. FINDINGS: Left clavicular internal fixation and old left rib fractures are incidentally noted. The en dotracheal and nasogastric tubes have been removed. Lung volumes are diminished. This is unchanged. N o pneumothorax or pleural effusion is noted. Cardiomediastinal silhouette is stable. Bilateral airspa ce opacities have slightly improved. IMPRESSION: 1. Slight improvement in bilateral airspace opacities. 2. Interval removal of the endotracheal and nasogastric tubes. ACT 112: Negative or not required by law. Electronically signed by: Pascual Gómez M.D. 03/30/2020 9:09 AM
[2020-03-30] MEDS: ENOXAPARIN INJ 60 MG/0.6 ML SYR SQ SCH ×2 (10:07→23:06)
[2020-03-30] MEDS: DOXYCYCLINE HYCLATE 100 MG in DEXTROSE 5% 100 ML IV SCH ×2 (10:07→23:06)
[2020-03-30] MEDS ORDERED: POTASSIUM PHOSPHATE 15 MMOL in SODIUM CHLORIDE 0.9% 250 ML IV STA (10:37)
--- NOTE | 2020-03-30 12:14 | Critical Care Progress Note ---
Date of Service March 30, 2020 Assessment & Plan (1) Pneumonia due to COVID-19 virus: --S/p VDRF Extubated 03/19/2020 Likely secondary to COVID-19 pneumonia Continue with ventilatory support Keep RASS -1 Daily sedation holidays and SBT's Chlorhexidine mouthwash --COVID-19 pneumonia Influenza A/B: Negative, COVID-19: +ve 03/27/2020 Ferritin: 1295, LDH 342, D-dimer 2030 Procalcitonin 0.06 --> 0.05 03/29/2020 Continue with dexamethasone for total of 10 days 6 mg Continue with remdesivir for total of 5 days. --> Monitor creatinine and LFTs --Right lobe pulmonary scarring Minimal Mildly reduced DLCO on PFTs 07/2019 --Hypertension Blood pressure medications on hold --Hypokalemia and hypomagnesemia Being replaced --Obesity --Prophylaxis VTE: Lovenox 60 mg twice daily GI: Pepcid Lines: Peripheral, left radial Diet: Regular diet Plan: In/out: -1.2 L, urine output 3725 Patient clinically doing better. Did not use BiPAP overnight as he was complaining of nausea. I will still continue with BiPAP nightly. Zofran as needed for nausea. Patient complains of left lower quadrant pain where he has bruising most likely from the Lovenox shot. H&H is stable. Continue with doxycycline for total of 5 days. Going down on Lovenox to maybe 40 twice daily starting tomorrow. Patient is stable to be downgraded out of the ICU. Please note the above document was generated using voice recognition software. It may contain grammatical, syntax or spelling errors.Any formal questions or concerns about the content, text or information contained within the body of this dictation should be directly addressed to the provider for clarification. (2) Multifocal pneumonia: (3) Respiratory failure with hypoxia: (4) Obesity (BMI 30.0-34.9): (5) Pulmonary scarring: Admission and Anticipated Discharge Date Admission Date: March 27, 2020 Subjective Critical care patient seen and examined at bedside. No acute distress, no adverse events overnight. Patient complains of pain in the left flank where he can impact the Lovenox shot. Apparently subcu bruising. Patient complains of nausea. Had one episode of vomiting. NBNB. Mood is flat. Denies any complaints with breathing. No chest pain, no dizziness. Review of Systems Review of Systems: All systems reviewed & are unremarkable except as noted in Subjective Physical Exam Physical Exam: Constitutional: No acute distress HEENT: PERRLA, EOMI Respiratory system: Decreased air entry bilaterally, no wheeze, no rhonchi, positive crackles bilateraly CVS: S1-S2 positive, no murmurs or gallops Abdomen: Soft, nontender, nondistended, positive bowel sounds x4 Extremities: +2 pulses bilaterally radialis/ dorsalis pedis, no cyanosis, no edema Neuro: Awake alert oriented to self and place Psych: Flat mood and affect G/U: Positive Alexander Skin: no rashes, warm and dry Lymphatic: no cervical or axillary lymphadenopathy Results & Data Results & Data ([facility]) Vital Signs (Past 12 Hours) Vital Signs Temp Pulse Resp BP Pulse Ox 03/30/20 12:00 67 26 H 148/91 H 96 03/30/20 11:46 69 26 H 95 03/30/20 11:45 143/90 H 03/30/20 11:43 139/109 H 95 03/30/20 11:00 70 25 H 93 03/30/20 10:42 73 28 H 91 03/30/20 10:00 68 25 H 94 03/30/20 09:00 70 23 93 03/30/20 08:00 36.5 C 67 23 94 03/30/20 07:00 69 25 H 91 03/30/20 06:45 73 25 H 89 L 03/30/20 06:30 72 36 H 92 03/30/20 06:00 60 18 94 03/30/20 05:30 62 20 95 03/30/20 05:21 61 20 160/100 H 94 03/30/20 05:00 36.8 C 62 20 95 03/30/20 04:22 64 21 139/76 94 03/30/20 04:00 63 21 94 03/30/20 03:22 66 25 H 96 03/30/20 03:00 59 L 19 96 03/30/20 02:22 64 20 138/93 94 03/30/20 02:00 62 22 97 03/30/20 01:30 65 21 97 03/30/20 01:00 64 14 97 03/30/20 00:30 63 22 93 03/30/20 04:47 03/30/20 04:47 Coding Level of Care Code 41745 Subseq Hosp Care Lvl 3 Diagnoses Pneumonia due to COVID-19 virus U07.1; J12.89 Multifocal pneumonia J18.9 Respiratory failure with hypoxia J96.91 Obesity (BMI 30.0-34.9) E66.9 Pulmonary scarring J98.4
--- NOTE | 2020-03-30 22:58 | Hospitalist Progress Note ---
Date of Service March 30, 2020 Assessment & Plan (1) Admitted to intensive care unit: Admitted to intensive care unit for treatment of multifocal pneumonia due to COVID-19 virus/respiratory failure with hypoxia/intubation in the ED- Extubated, will be transferring patient out of ICU today. (2) Pneumonia due to COVID-19 virus: Multifocal pneumonia due to COVID-19 virus/respiratory failure with hypoxia- Consult liability claims manager Dr. Escobar and ICU team Ventilator management per ICU team Standard Covid treatments including Decadron, Remdesivir IV per protocol. Consider convalescent plasma per ICU team. - Stopped vancomycin IV per pharmacokinetic monitoring - Zosyn & Doxycycline per ICU team (3) Respiratory failure with hypoxia: See above (4) Multifocal pneumonia: See above (5) Hypokalemia: NSS + KCl 20 mEq at 60 mils per hour. Repeat laboratories as above. Admission and Anticipated Discharge Date Admission Date: March 27, 2020 Subjective seen through door. Given global pandemic, limited to only one provider seeing patient. Results & Data Results & Data ([facility]) Vital Signs (Past 12 Hours) Vital Signs Temp Pulse Pulse Resp BP BP Pulse Ox 03/30/20 21:17 36.7 C 66 33 H 135/96 92 03/30/20 20:50 64 22 92 03/30/20 16:55 36.7 C 71 28 H 156/97 H 94 03/30/20 12:00 67 26 H 148/91 H 96 03/30/20 11:46 69 26 H 95 03/30/20 11:45 143/90 H 03/30/20 11:43 139/109 H 95 03/30/20 11:00 70 25 H 93 PG Care Time/CCT Total # of Minutes Spent Total Time Spent with Patient: Total time spent is greater than 50% in coordination of care (as documented) at patient's floor/unit and/or counseling patient: Coding Level of Care Code None Diagnoses Admitted to intensive care unit Z78.9 Pneumonia due to COVID-19 virus U07.1; J12.89 Respiratory failure with hypoxia J96.91 Multifocal pneumonia J18.9 Hypokalemia E87.6
[2020-03-31] MEDS: REMDESIVIR 100mg: Days 2-5 IV SCH (03:16)
[2020-03-31] MEDS: SODIUM CHLORIDE 0.9% 10ML FLUSH IV SCH (04:07)
[2020-03-31] MEDS: dexAMETHasone 6 MG in SYRINGE 0 ML IV SCH ×2 (07:51→09:46)
[2020-03-31] MEDS: DOXYCYCLINE HYCLATE 100 MG in DEXTROSE 5% 100 ML IV SCH ×2 (09:46→21:55)
[2020-03-31] MEDS: FAMOTIDINE 20 MG in SYRINGE 3 ML IV SCH ×2 (09:47→21:55)
[2020-03-31] MEDS: ENOXAPARIN INJ 60 MG/0.6 ML SYR SQ SCH ×2 (09:48→21:55)
[2020-03-31] MEDS: D5W AND 1/2NSS 1,000 ML IV SCH (16:18)
--- NOTE | 2020-03-31 22:48 | Hospitalist Progress Note ---
Date of Service March 31, 2020 Assessment & Plan (1) Admitted to intensive care unit: Admitted to intensive care unit for treatment of multifocal pneumonia due to COVID-19 virus/respiratory failure with hypoxia/intubation in the ED- Extubated, will be transferring patient out of ICU. (2) Pneumonia due to COVID-19 virus: Multifocal pneumonia due to COVID-19 virus/respiratory failure with hypoxia- Consult critical power technician Dr. Escobar and ICU team Ventilator management per ICU team Standard Covid treatments including Decadron, Remdesivir IV per protocol. Consider convalescent plasma per ICU team. - Stopped vancomycin IV per pharmacokinetic monitoring - Zosyn & Doxycycline per ICU team -titrated down Doxycycline. (3) Respiratory failure with hypoxia: See above (4) Multifocal pneumonia: See above (5) Hypokalemia: improved. Admission and Anticipated Discharge Date Admission Date: March 27, 2020 Subjective 59 male reports feeling better. Patient denies any nausea, vomiting, diarrhea. Review of Systems Review of Systems: All systems reviewed & are unremarkable except as noted in HPI & below Physical Exam Physical Exam: Constitutional: NAD. Eyes: EOM intact bilaterally; no conjunctival abnormality ENMT: external ear and nose normal, oropharynx normal Neck: trachea midline, no thyromegaly normal visual inspection Respiratory: CTA B/L no respiratory distress and no cough Cardiovascular: Rate/Rhythm: regular rhythm and + bradycardic Heart Sounds: normal S1 and normal S2 Gastrointestinal (Abdomen): Inspection/Auscultation: abdomen normal to inspection; abdomen not distended Musculoskeletal: no cyanosis or clubbing, extremities motor strength 5/5 Skin: no rashes, warm and dry Neurologic: moves all extremities and awake Psychiatric: Orientation: cooperative; AAOx3. Results & Data Results & Data ([facility]) Vital Signs (Past 12 Hours) Vital Signs Temp Pulse Resp BP Pulse Ox 03/31/20 19:52 36.8 C 73 23 147/87 H 93 03/31/20 15:50 36.7 C 79 25 H 141/99 H 93 03/31/20 12:08 36.4 C L 71 24 140/92 94 PG Care Time/CCT Total # of Minutes Spent Total Time Spent with Patient: Total time spent is greater than 50% in coordination of care (as documented) at patient's floor/unit and/or counseling patient: Coding Level of Care Code 05149 Subseq Hosp Care Lvl 3 Diagnoses Admitted to intensive care unit Z78.9 Pneumonia due to COVID-19 virus U07.1; J12.89 Respiratory failure with hypoxia J96.91 Multifocal pneumonia J18.9 Hypokalemia E87.6 Time Spent (min) 35
[2020-04-01] MEDS: REMDESIVIR 100mg: Days 2-5 IV SCH (02:05)
[2020-04-01] MEDS: SODIUM CHLORIDE 0.9% 10ML FLUSH IV SCH (03:14)
[2020-04-01 08:32] LABS: Hematocrit (blood only) 45.9 % (42-52); Hemoglobin 15.3 g/dL (14.0-18.0); Mean Corpuscular Hemoglobin 31.6 pg (25-34); Mean Corpuscular Hgb Conc 33.3 g/dL (32-36); Mean Corpuscular Volume 94.8 fL (80-100); Mean Platelet Volume 10.5 fL (7.4-10.4); Platelet Count 291 K/uL (130-400); RDW Coefficient of Variation 13.2 % (11.5-14.5); Red Blood Count 4.84 M/uL (4.7-6.1)
[2020-04-01 08:46] LABS: D Dimer 2980 ug/L FEU (0-500)
[2020-04-01 08:50] LABS: Basophils # (auto) 0.06 K/uL (0-0.2); Basophils % (auto) 0.5 %; Eosinophils # (auto) 0.09 K/uL (0-0.5); Eosinophils % (auto) 0.8 %; Immature Granulocytes # (auto) 0.65 K/uL (0.00-0.02); Immature Granulocytes % (auto) 5.5 %; Lymphocytes # (auto) 2.74 K/uL (1.2-3.4); Monocytes # (auto) 1.41 K/uL (0.11-0.59); Monocytes % (auto) 11.8 %; Neutrophils # (auto) 6.95 K/uL (1.4-6.5); Neutrophils % (auto) 58.4 %
[2020-04-01 09:05] LABS: Calcium 8.4 mg/dl (8.5-10.1); Creatinine Clr Calc Pharmacy 111.8 ml/min; Est GFR (African American) 88.6; Est GFR (Non-African American) 76.4; Potassium 3.8 mmol/L (3.5-5.1)
--- NOTE | 2020-04-01 10:36 | Electrocardiogram Report ---
Test Reason : Blood Pressure : / mmHG Vent. Rate : 060 BPM Atrial Rate : 060 BPM P-R Int : 174 ms QRS Dur : 082 ms QT Int : 462 ms P-R-T Axes : 035 027 023 degrees QTc Int : 462 ms Normal sinus rhythm Normal ECG When compared with ECG of 27-MAR-2020 14:36, Premature ventricular complexes are no longer Present Confirmed by Byron Thomson [id number] on 04/01/2020 10:36:42 AM Referred By: REFERRED SELF Confirmed By:Byron Thomson
[2020-04-01] MEDS: DOXYCYCLINE HYCLATE 100 MG in DEXTROSE 5% 100 ML IV SCH (11:07)
[2020-04-01] MEDS: ENOXAPARIN INJ 60 MG/0.6 ML SYR SQ SCH ×2 (11:08→21:54)
[2020-04-01] MEDS: FAMOTIDINE 20 MG in SYRINGE 3 ML IV SCH ×2 (11:13→21:55)
[2020-04-01] MEDS: dexAMETHasone 6 MG in SYRINGE 0 ML IV SCH ×2 (11:51→21:54)
[2020-04-01] MEDS: D5W AND 1/2NSS 1,000 ML IV SCH (12:39)
[2020-04-02] MEDS ORDERED: REMDESIVIR 200 MG in SODIUM CHLORIDE 0.9% 210 ML IV STA (07:54)
[2020-04-02] MEDS ORDERED: SODIUM CHLORIDE 0.9% 10ML FLUSH IV STA (07:54)
--- NOTE | 2020-04-02 07:58 | Hospitalist Progress Note ---
Date of Service April 01, 2020 Assessment & Plan (1) Admitted to intensive care unit: Admitted to intensive care unit for treatment of multifocal pneumonia due to COVID-19 virus/respiratory failure with hypoxia/intubation in the ED- Extubated, will be transferring patient out of ICU. (2) Pneumonia due to COVID-19 virus: Multifocal pneumonia due to COVID-19 virus/respiratory failure with hypoxia- Consult print shop manager Dr. Escobar and ICU team Ventilator management per ICU team Standard Covid treatments including Decadron, Remdesivir IV per protocol. Consider convalescent plasma per ICU team. - Stopped vancomycin IV per pharmacokinetic monitoring - Zosyn & Doxycycline per ICU team -titrated down Doxycycline.-WILL CONSIDER RESTARTING REMDESiVIR IF O2 sat continues to drop, however clinically, patient appears to be doing well. Chest x ray looks good as well. WHO reports no benefit with remdesivir. (3) Respiratory failure with hypoxia: See above (4) Multifocal pneumonia: See above (5) Hypokalemia: improved. Admission and Anticipated Discharge Date Admission Date: March 27, 2020 Subjective Patient reports feeling well. He states to feel concerned that he had a brief drop in his oxygen saturation. Review of Systems Review of Systems: All systems reviewed & are unremarkable except as noted in Subjective Physical Exam Physical Exam: Constitutional: NAD. Eyes: EOM intact bilaterally; no conjunctival abnormality ENMT: external ear and nose normal, oropharynx normal Neck: trachea midline, no thyromegaly normal visual inspection Respiratory: CTA B/L no respiratory distress and no cough Cardiovascular: Rate/Rhythm: regular rhythm Heart Sounds: normal S1 and normal S2 Gastrointestinal (Abdomen): Inspection/Auscultation: abdomen normal to inspection; abdomen not distended Musculoskeletal: no cyanosis or clubbing, extremities motor strength 5/5 Skin: no rashes, warm and dry Neurologic: moves all extremities and awake Psychiatric: Orientation: cooperative; AAOx3. Results & Data Results & Data ([facility]) Vital Signs (Past 12 Hours) Vital Signs Temp Pulse Resp BP Pulse Ox 04/02/20 07:46 36.5 C 63 21 123/84 96 04/02/20 04:00 36.8 C 65 22 131/90 94 04/02/20 00:32 36.7 C 69 22 136/86 94 04/01/20 19:57 36.5 C 75 19 136/83 95 PG Care Time/CCT Total # of Minutes Spent Total Time Spent with Patient: Total time spent is greater than 50% in coor dination of care (as documented) at patient's floor/unit and/or counseling patient: Coding Level of Care Code 87846 Subseq Hosp Care Lvl 3 Diagnoses Admitted to intensive care unit Z78.9 Pneumonia due to COVID-19 virus U07.1; J12.89 Respiratory failure with hypoxia J96.91 Multifocal pneumonia J18.9 Hypokalemia E87.6 Time Spent (min) 35
[2020-04-02] MEDS ORDERED: SODIUM CHLORIDE 0.9% 10ML FLUSH IV SCH (08:00)
[2020-04-02 08:50] LABS: Basophils # (auto) 0.03 K/uL (0-0.2); Basophils % (auto) 0.2 %; Eosinophils # (auto) 0.09 K/uL (0-0.5); Eosinophils % (auto) 0.7 %; Hematocrit (blood only) 46.2 % (42-52); Hemoglobin 15.4 g/dL (14.0-18.0); Immature Granulocytes # (auto) 0.47 K/uL (0.00-0.02); Immature Granulocytes % (auto) 3.9 %; Lymphocytes # (auto) 3.04 K/uL (1.2-3.4); Lymphocytes % (auto) 25.3 %; Mean Corpuscular Hemoglobin 31.4 pg (25-34); Mean Corpuscular Hgb Conc 33.3 g/dL (32-36); Mean Corpuscular Volume 94.1 fL (80-100); Mean Platelet Volume 10.7 fL (7.4-10.4); Monocytes # (auto) 1.21 K/uL (0.11-0.59); Monocytes % (auto) 10.1 %; Neutrophils # (auto) 7.17 K/uL (1.4-6.5); Neutrophils % (auto) 59.8 %; Platelet Count 274 K/uL (130-400); RDW Coefficient of Variation 13.2 % (11.5-14.5); RDW Standard Deviation 45.7 fL (36.4-46.3); Red Blood Count 4.91 M/uL (4.7-6.1); White Blood Count 12.01 K/uL (4.8-10.8)
[2020-04-02] MEDS: FAMOTIDINE 20 MG in SYRINGE 3 ML IV SCH ×2 (09:17→22:11)
[2020-04-02] MEDS: ENOXAPARIN INJ 60 MG/0.6 ML SYR SQ SCH ×2 (09:17→22:11)
[2020-04-02] MEDS: dexAMETHasone 6 MG in SYRINGE 0 ML IV SCH (09:17)
[2020-04-02 09:19] LABS: BUN Creatinine Ratio 20.7 (10-20); Calcium 8.7 mg/dl (8.5-10.1); Creatinine Clr Calc Pharmacy 115.8 ml/min; Est GFR (African American) 92.8; Est GFR (Non-African American) 80.1; Potassium 4.1 mmol/L (3.5-5.1)
[2020-04-02 09:24] LABS: Ferritin 1068.7 ng/ml (8-388)
--- NOTE | 2020-04-02 22:25 | Hospitalist Progress Note ---
Date of Service April 02, 2020 Assessment & Plan (1) Admitted to intensive care unit: Admitted to intensive care unit for treatment of multifocal pneumonia due to COVID-19 virus/respiratory failure with hypoxia/intubation in the ED- Extubated (2) Pneumonia due to COVID-19 virus: Multifocal pneumonia due to COVID-19 virus/respiratory failure with hypoxia- Consult bar gauger and lubricator tender Dr. Escobar and ICU team Ventilator management per ICU team Standard Covid treatments including Decadron, Remdesivir IV per protocol. Consider convalescent plasma per ICU team. - Stopped vancomycin IV per pharmacokinetic monitoring - Zosyn & Doxycycline per ICU team -titrated down Doxycycline. -Patient completed remdesivir, will not restart this as patient is clinically improving.. -will continue to use incentive spirometry throughout the day. (3) Respiratory failure with hypoxia: See above (4) Multifocal pneumonia: See above (5) Hypokalemia: improved. Admission and Anticipated Discharge Date Admission Date: March 27, 2020 Subjective Patient reports breathing better today. He also ambulated further than he did yesterday. Able to walk the halls with assistance. Review of Systems Review of Systems: All systems reviewed & are unremarkable except as noted in HPI & below Physical Exam Physical Exam: Constitutional: NAD. Eyes: EOM intact bilaterally; no conjunctival abnormality ENMT: external ear and nose normal, oropharynx normal Neck: trachea midline, no thyromegaly normal visual inspection Respiratory: CTA B/L no respiratory distress and no cough Cardiovascular: Rate/Rhythm: regular rhythm Heart Sounds: normal S1 and normal S2 Gastrointestinal (Abdomen): Inspection/Auscultation: abdomen normal to inspection; abdomen not distended Musculoskeletal: no cyanosis or clubbing, extremities motor strength 5/5 Skin: no rashes, warm and dry Neurologic: moves all extremities and awake Psychiatric: Orientation: cooperative; AAOx3. Results & Data Results & Data ([facility]) Vital Signs (Past 12 Hours) Vital Signs Temp Pulse Resp BP Pulse Ox 04/02/20 20:59 36.6 C 66 18 121/80 97 04/02/20 15:31 36.5 C 72 18 122/82 90 04/02/20 11:27 36.5 C 79 16 105/71 95 PG Care Time/CCT Total # of Minutes Spent Total Time Spent with Patient: Total time spent is greater than 50% in coordination of care (as documented) at patient's floor/unit and/or counseling patient: Coding Level of Care Code 99162 Subseq Hosp Care Lvl 3 Diagnoses Admitted to intensive care unit Z78.9 Pneumonia due to COVID-19 virus U07.1; J12.89 Respiratory failure with hypoxia J96.91 Multifocal pneumonia J18.9 Hypokalemia E87.6 Time Spent (min) 35
[2020-04-03] MEDS ORDERED: REMDESIVIR 100 MG in SODIUM CHLORIDE 0.9% 230 ML IV SCH (08:00)
[2020-04-03] MEDS: ENOXAPARIN INJ 60 MG/0.6 ML SYR SQ SCH ×2 (08:56→22:12)
[2020-04-03] MEDS: dexAMETHasone 6 MG in SYRINGE 0 ML IV SCH (08:56)
[2020-04-03] MEDS: FAMOTIDINE 20 MG in SYRINGE 3 ML IV SCH ×2 (08:56→22:12)
--- NOTE | 2020-04-03 22:11 | Hospitalist Progress Note ---
Date of Service April 03, 2020 Assessment & Plan (1) Admitted to intensive care unit: Admitted to intensive care unit for treatment of multifocal pneumonia due to COVID-19 virus/respiratory failure with hypoxia/intubation in the ED- Extubated (2) Pneumonia due to COVID-19 virus: Multifocal pneumonia due to COVID-19 virus/respiratory failure with hypoxia- Consult healthcare customer service Dr. Escobar and ICU team Ventilator management per ICU team Standard Covid treatments including Decadron, Remdesivir IV per protocol. Consider convalescent plasma per ICU team. - Stopped vancomycin IV per pharmacokinetic monitoring - Zosyn & Doxycycline per ICU team -completed antibiotics -Patient completed remdesivir. -will continue to use incentive spirometry throughout the day. -will need to complete decadron for 10 days total. (last dose 04/05) -Updated on the phone (3) Respiratory failure with hypoxia: See above (4) Multifocal pneumonia: See above (5) Hypokalemia: improved. Admission and Anticipated Discharge Date Admission Date: March 27, 2020 Subjective Patient reports feeling better. He continues to use the incentive spirometry. He is breathing more comfortably. Review of Systems Review of Systems: All systems reviewed & are unremarkable except as noted in HPI & below Physical Exam Physical Exam: Constitutional: NAD. Eyes: EOM intact bilaterally; no conjunctival abnormality ENMT: external ear and nose normal, oropharynx normal Neck: trachea midline, no thyromegaly normal visual inspection Respiratory: CTA B/L no respiratory distress and no cough Cardiovascular: Rate/Rhythm: regular rhythm Heart Sounds: normal S1 and normal S2 Gastrointestinal (Abdomen): Inspection/Auscultation: abdomen normal to inspection; abdomen not distended Musculoskeletal: no cyanosis or clubbing, extremities motor strength 5/5 Skin: no rashes, warm and dry Neurologic: moves all extremities and awake Psychiatric: Orientation: cooperative; AAOx3. Results & Data Results & Data ([facility]) Vital Signs (Past 12 Hours) Vital Signs Temp Pulse Resp BP Pulse Ox 04/03/20 19:34 36.8 C 77 17 117/76 89 L 04/03/20 16:03 36.9 C 79 17 119/78 91 PG Care Time/CCT Total # of Minutes Spent Total Time Spent with Patient: Total time spent is greater than 50% in coordination of care (as documented) at patient's floor/unit and/or counseling patient: Coding Level of Care Code 89199 Subseq Hosp Care Lvl 3 Diagnoses Admitted to intensive care unit Z78.9 Pneumonia due to COVID-19 virus U07.1; J12.89 Respiratory failure with hypoxia J96.91 Multifocal pneumonia J18.9 Hypokalemia E87.6 Time Spent (min) 35
[2020-04-04 07:23] LABS: Hematocrit (blood only) 44.1 % (42-52); Hemoglobin 14.7 g/dL (14.0-18.0); Mean Corpuscular Hemoglobin 31.3 pg (25-34); Mean Corpuscular Hgb Conc 33.3 g/dL (32-36); Mean Platelet Volume 11.1 fL (7.4-10.4); Platelet Count 266 K/uL (130-400); RDW Coefficient of Variation 13.3 % (11.5-14.5); RDW Standard Deviation 45.3 fL (36.4-46.3); Red Blood Count 4.69 M/uL (4.7-6.1); White Blood Count 10.37 K/uL (4.8-10.8)
[2020-04-04 07:58] LABS: Albumin Level 2.8 gm/dl (3.4-5.0); BUN Creatinine Ratio 28.2 (10-20); Calcium 8.6 mg/dl (8.5-10.1); Creatinine Clr Calc Pharmacy 128.8 ml/min; Est GFR (Non-African American) 93.2; Potassium 3.9 mmol/L (3.5-5.1)
[2020-04-04 08:00] LABS: Albumin Globulin Ratio 0.7 (0.9-2); Bilirubin,Total 1.5 mg/dl (0.2-1); Total Protein 6.8 gm/dl (6.4-8.2)
[2020-04-04] MEDS: dexAMETHasone 6 MG in SYRINGE 0 ML IV SCH (10:43)
[2020-04-04] MEDS: FAMOTIDINE 20 MG in SYRINGE 3 ML IV SCH ×2 (10:43→21:29)
[2020-04-04] MEDS: ENOXAPARIN INJ 60 MG/0.6 ML SYR SQ SCH ×2 (10:43→21:28)
--- NOTE | 2020-04-04 21:07 | Hospitalist Progress Note ---
Date of Service April 04, 2020 Assessment & Plan (1) Pneumonia due to COVID-19 virus: Multifocal pneumonia due to COVID-19 virus/respiratory failure with hypoxia- initially required intubation now extubated for several days, responding well to treatment - Zosyn & Doxycycline x 7 days, completed -Patient completed remdesivir did not get convalescent plasma -will continue to use incentive spirometry throughout the day. -will need to complete decadron for 10 days total. (last dose 04/05) titrated down to room air, breathing comfortably, ambulating in halls with therapy plan for [facility] on 04/07 (2) Respiratory failure with hypoxia: initially required intubation and mechanical ventilation extubated for several days breathing well on room air today, ambulated in the halls with no oxygen, felt well (3) Multifocal pneumonia: COVID 19 covered for bacterial infection, completed full course of Zosyn and Doxycycline no fever, breathing well, minimal cough (4) Hypokalemia: improved yesterday check labs tomorrow morning (5) Admitted to intensive care unit: Admitted to intensive care unit for treatment of multifocal pneumonia due to COVID-19 virus/respiratory failure with hypoxia/intubation in the ED- Extubated (6) Ureterolithiasis: he had a ureteral stent placed for 7mm stone at [place] the day prior to deteriorating with pneumonia due to COVID he is about 2 weeks out from stent, has not had definitive treatment of stone no flank pain, no dysuria, no hematuria will ask urology tomorrow about recommendations (7) Weakness: improving quickly with therapy tentative plan for [facility] on 04/07, needs to be 10 days out from positive COVID test Admission and Anticipated Discharge Date Admission Date: March 27, 2020 Subjective patient doing great today, highly motivated to get out of the hospital he ambulated 225 feet today with a walker, therapy was impressed by his improve ment since Saturday the plan is for him to go to [facility] on , he agrees with this plan he is eating much better, making urine, moving his bowels he has a question about ureteral stent that was placed about 2 weeks ago in [place] he was supposed to have definitive treatment for 7mm ureteral stone but never made it to the office due to COVID and hypoxemia will ask urology here for their recommendations he is on room air, breathing well, minimal cough, no fever reviewed chart for the admission Review of Systems Review of Systems: All systems reviewed & are unremarkable except as noted in Subjective Physical Exam Constitutional: WD/WN, vitals as above Neck: trachea midline, no thyromegaly Respiratory: normal respiratory effort, lungs clear to auscultation Cardiovascular: RRR, no murmur, no edema Gastrointestinal (Abdomen): normal bowel sounds, soft, nontender, no hepatosplenomegaly Musculoskeletal: Head/Neck/Chest: normocephalic, head atraumatic and neck supple Extremities: extremities normal to inspection and strength 5/5 throughout; no cyanosis, no clubbing and no petechiae Skin: no rashes, warm and dry Neurologic: patellar DTR's 2+ bilat, sensation intact and PERRL, EOMI, accommodation nl, no face palsy, no dysarthria Psychiatric: A+Ox3, euthymic affect Lymphatic: no cervical or axillary lymphadenopathy Results & Data Results & Data ([facility]) Vital Signs (Past 12 Hours) Vital Signs Temp Pulse Resp BP Pulse Ox 04/04/20 20:03 36.5 C 73 16 124/82 92 04/04/20 15:41 36.5 C 71 18 124/73 93 Laboratory Results Laboratory Results - last 24 hr 04/04/20 04/04/20 05:43 05:43 WBC 10.37 RBC 4.69 L Hgb 14.7 Hct 44.1 MCV 94.0 MCH 31.3 MCHC 33.3 RDW Std Deviation 45.3 RDW Coeff of Reynaldo 13.3 Plt Count 266 MPV 11.1 H Sodium 138 Potassium 3.9 Chloride 107 Carbon Dioxide 27 Anion Gap 4.0 BUN 25 H Creatinine 0.90 Est Cr Clr Drug Dosing 128.8 Est GFR ( Amer) 108.0 Est GFR (Non-Af Amer) 93.2 BUN/Creatinine Ratio 28.2 H Glucose 88 Calcium 8.6 Total Bilirubin 1.5 H AST 25 ALT 67 Alkaline Phosphatase 67 Total Protein 6.8 Albumin 2.8 L Globulin 4.0 Albumin/Globulin Ratio 0.7 L Medications Administered Current Inpatient Medications Enoxaparin Sodium (Enoxaparin Inj 60 Mg/0.6 Ml Syr) 60 mg SQ Q12H [facility] Stop: 04/27/20 10:59 Last Admin: 04/04/20 10:43 Dose: 60 mg Documented by: Famotidine 20 mg/ Syringe 5 mls @ 2.5 mls/min IV Q12H [facility] Stop: 04/26/20 21:59 Last Admin: 04/04/20 10:43 Dose: 2.5 mls/min Documented by: Dexamethasone 6 mg/ Syringe 1.5 mls @ 1 mls/min IV DAILY [facility] Stop: 04/07/20 08:59 Last Admin: 04/04/20 10:43 Dose: 1 mls/min Documented by: Nutritional Formula (Peptamen Intense Vhp 1.0 Kvng 1,000 Ml Bag) 1,000 ml OG UD [facility]; Protocol Stop: 04/28/20 10:59 Ondansetron HCl (Ondansetron Inj 2 Mg/Ml 2 Ml Vial) 4 mg IV Q6H PRN PRN Reason: Nausea Stop: 04/28/20 19:16 Last Admin: 03/30/20 12:07 Dose: 4 mg Documented by: PG Care Time/CCT Total # of Minutes Spent Total Time Spent with Patient: Total time spent is greater than 50% in coordina tion of care (as documented) at patient's floor/unit and/or counseling patient: Coding Level of Care Code 41316 Subseq Hosp Care Lvl 3 Diagnoses Pneumonia due to COVID-19 virus U07.1; J12.89 Respiratory failure with hypoxia J96.91 Multifocal pneumonia J18.9 Hypokalemia E87.6 Admitted to intensive care unit Z78.9 Ureterolithiasis N20.1 Weakness R53.1
[2020-04-05 06:51] LABS: Hematocrit (blood only) 45.2 % (42-52); Hemoglobin 15.1 g/dL (14.0-18.0); Mean Corpuscular Hemoglobin 31.8 pg (25-34); Mean Corpuscular Hgb Conc 33.4 g/dL (32-36); Mean Corpuscular Volume 95.2 fL (80-100); Platelet Count 265 K/uL (130-400); RDW Coefficient of Variation 13.1 % (11.5-14.5); RDW Standard Deviation 45.6 fL (36.4-46.3); Red Blood Count 4.75 M/uL (4.7-6.1); White Blood Count 9.89 K/uL (4.8-10.8)
[2020-04-05 07:22] LABS: Albumin Level 3.2 gm/dl (3.4-5.0); BUN Creatinine Ratio 24.7 (10-20); Calcium 8.8 mg/dl (8.5-10.1); Creatinine Clr Calc Pharmacy 114.8 ml/min; Est GFR (African American) 93.9; Potassium 3.8 mmol/L (3.5-5.1)
[2020-04-05 07:25] LABS: Albumin Globulin Ratio 0.8 (0.9-2); Bilirubin,Total 1.8 mg/dl (0.2-1); Total Protein 7.2 gm/dl (6.4-8.2)
[2020-04-05] MEDS: ENOXAPARIN INJ 60 MG/0.6 ML SYR SQ SCH (10:11)
[2020-04-05] MEDS: FAMOTIDINE 20 MG in SYRINGE 3 ML IV SCH (10:11)
[2020-04-05] MEDS: dexAMETHasone 6 MG in SYRINGE 0 ML IV SCH (10:11)
--- NOTE | 2020-04-05 12:45 | Discharge Summary ---
Date of Service April 05, 2020 Admission HPI Per Admitting Provider The patient is a 59-year-old male with a past medical history including obesity, BPH, hypertension, GERD, and asthma. The history is reported of the having been at [facility], and then went and then to [facility], where he was admitted for treatment of an unknown lung infection. He was discharged on a steroid taper and Levaquin. He had had Covid testing done as recently as 5 days ago, which was reportedly negative. His main symptoms reported were fever and cough. During his stay in the emergency department, the patient became more lethargic and less responsive, with decreased inspiratory volume. Decision was made to intubate patient in the emergency department, and admit to the ICU for further treatment. Principal Diagnosis COVID 19 pneumonia with acute hypoxic respiratory failure Discharge Exam Constitutional WD/WN, vitals as above Neck trachea midline, no thyromegaly Respiratory normal respiratory effort, lungs clear to auscultation Cardiovascular RRR, no murmur, no edema Gastrointestinal (Abdomen) normal bowel sounds, soft, nontender, no hepatosplenomegaly Musculoskeletal Head/Neck/Chest: normocephalic, head atraumatic and neck supple Extremities: extremities normal to inspection and strength 5/5 throughout; no cyanosis, no clubbing and no petechiae Skin no rashes, warm and dry Neurologic patellar DTR's 2+ bilat, sensation intact and PERRL, EOMI, accommodation nl, no face palsy, no dysarthria Psychiatric A+Ox3, euthymic affect Lymphatic no cervical or axillary lymphadenopathy Discharge Data Allergies Allergy/AdvReac Type Severity Reaction Status Date / Time No Known Allergies Allergy Verified 03/27/20 16:42 Consultations 03/27/20 19:12 ED Decision to Admit Stat 03/27/20 22:08 Consult Case Management - Discharge Planning Routine Consult Director Of Event Sales Routine Ordered Studies 03/27/20 15:57 CT angio chest PE protocol Stat CT soft tissue neck w con Stat Hospital Course (1) Pneumonia due to COVID-19 virus: Multifocal pneumonia due to COVID-19 virus/respiratory failure with hypoxia- initially required intubation now extubated for several days, responding well to treatment - Zosyn & Doxycycline x 7 days, completed -Patient completed remdesivir did not get convalescent plasma -will continue to use incentive spirometry throughout the day. -completed 10 days of decadron on 04/05 titrated down to room air for three days, breathing comfortably, ambulating in halls with therapy strong enough to return home with home therapy will follow up with PCP (2) Respiratory failure with hypoxia: initially required intubation and mechanical ventilation extubated for several days breathing well on room air past three days, ambulated in the halls with no oxygen, felt well d/c to home (3) Multifocal pneumonia: COVID 19 covered for bacterial infection, completed full course of Zosyn and Doxycycline no fever, breathing well, minimal cough (4) Hypokalemia: resolved with replacement (5) Ureterolithiasis: he had a ureteral stent placed for 7mm stone at [place] the day prior to deteriorating with pneumonia due to COVID he is about 2 weeks out from stent, has not had definitive treatment of stone no flank pain, no dysuria, no hematuria discussed with Dr. Collins with [facility] urology, he said that stents safe to stay in place for several more weeks would recommend follow up with urology, either [facility] or [place] (where stent placed) in 2-3 weeks patient knows to call if he has symptoms of flank pain, fever, dysuria, hematuria (6) Weakness: improving quickly with therapy tentatively planned for [facility] on 04/07, however he got so much stronger that he was safe to go directly home with home therapy Total Time Total Time Spent Total Time Spent (In Minutes): 35 minutes Total Time Includes: Examination of the Patient, Discharge Planning, Medication Reconciliation, Communication With Other Providers (Dr. Collins) and Other (spoke with his over the phone) Discharge Plan Discharge Items Patient Disposition: Home - Home Health Services Reason For Visit: ACUTE RESPIRATORY FAILURE WITH HYPOXIA Discharge Diagnosis: COVID 19 pneumonia Acute hypoxic respiratory failure Ureteral stone Condition on Discharge: Good Goals: improve strength and mobility stay well nourished and well hydrated Activity: Resume your previous activity Bathing: No limitations Exercise/Sports: Gradually increase as tolerated Driving/Machine Use: resume in one week Weightbearing: Full weightbearing Non-emergency contact: Primary Care Provider Call non-emergency contact if: you have any medication questions, your symptoms worsen and you have a fever Follow-up/Referrals: Andrea Collins MD [Physician] - (3-4 weeks, can be with a different provider, referral for ureteral stone) Trevor Rashid, [Primary Care Provider] - (one week) Diet: Regular Addtl Attending Provider Instructions: Medications: no new medications COVID 19 pneumonia with acute hypoxic respiratory failure rapidly recovering, titrated down to room air, no distress completed full course of dexamethasone and Remdesivir, no further treatment needed recommend that you remain in quarantine at home through 04/10 but then you would be safe to leave the home for activities such as physical therapy follow up with Dr. Rashid in one week Ureteral stone, 7mm discussed with Dr. Collins, the ureteral stent is safe to stay in place for up to 2 months put in a referral for you to follow up with [facility] group for eventual stent removal and treatment of the stone, such as lithotripsy you can follow up with [facility] urology or with [facility], whatever is more convenient for you as we discussed, would hold off on influenza vaccine and pneumonia vaccine until you are fully recovered can likely get them in 2 weeks, discuss with Dr. Rashid Pending Studies at Discharge: No Stand-Alone Forms: My [facility], Smoking Cessation Medications and DC Order Prescriptions: Continued omeprazole 20 mg capsule,delayed release(DR/EC) 20 mg PO DAILY RF: 0 albuterol sulfate 90 mcg/actuation HFA aerosol inhaler 2 puffs INH Q6H PRN (Reason: Wheezing) RF: 0 amitriptyline 75 mg tablet 75 mg PO HS RF: 0 propranolol 10 mg tablet 10 mg PO AMHS RF: 0 tamsulosin 0.4 mg capsule 0.4 mg PO DAILY RF: 0 Discontinued phenazopyridine 100 mg tablet 100 mg PO Q8H PRN (Reason: Dysuria) RF: 0 levofloxacin 750 mg tablet 750 mg PO Q24H RF: 0 prednisone 10 mg tablet See Rx Instructions .ROUTE .COMPLEX RF: 0 Discharge Orders: Discharge Order (Routine); Ordered 04/05/20 Ordered By: Mak Naidu Admission Data Admit Date/Time: 03/27/20 21:10 Attending Provider: Mak Naidu Admit Provider: Antwon Flores Primary Care Provider: Trevor Rashid Other Providers: Dinesh Wagner ; Antwon Flores ; Zohaib Escobar ; [facility] Other Interventions: Discharge Summary Assessment (RN) Last Done: 04/05/20 13:00 Coding Level of Care Code D/C Day Management >30 mins Diagnoses Pneumonia due to COVID-19 virus U07.1; J12.89 Respiratory failure with hypoxia J96.91 Multifocal pneumonia J18.9 Hypokalemia E87.6 Ureterolithiasis N20.1 Weakness R53.1
== END 2020-04-05 14:40 | disposition home health service (06) | DRG 177 ==
LOC: ED 14:12 → 1E 21:10 → SUATTDRO 21:10 → 1E 21:41 → 2E 03-30 10:00 → 3W 04-05 06:05